=== PATIENT | male | born 1965 | race Caucasian/White ===

== ENCOUNTER → 2022-02-27 | Outpatient (CLI) | payer BC ==
[2022-02-27 16:54] LABS: BASOPHILS ABSOLUTE AUTO 0.05 K/mm3 (0.00-0.23); BASOPHILS PERCENT AUTO 1 % (0-2); EOSINOPHILS ABSOLUTE AUTO 0.08 K/mm3 (0.00-0.68); EOSINOPHILS PERCENT AUTO 1 % (0-6); Hematocrit 42.2 % (37.0-53.0); Hemoglobin 14.8 g/dL (13.5-17.5); IMMATURE GRAN ABSOLUTE AUTO 0.11 K/mm3 (0.00-0.10); IMMATURE GRAN PERCENT AUTO 1 % (0-1); LYMPHOCYTES ABSOLUTE AUTO 3.11 K/mm3 (0.84-5.20); LYMPHOCYTES PERCENT AUTO 35 % (21-46); MONOCYTES ABSOLUTE AUTO 0.47 K/mm3 (0.16-1.47); MONOCYTES PERCENT AUTO 5 % (4-13); Mean Corpuscular HGB 34.3 pg (26.0-34.0); Mean Corpuscular HGB Conc 35.1 g/dL (31.5-36.5); Mean Corpuscular Volume 98 fL (80-100); Mean Platelet Volume 10.4 fL (9.1-12.4); NEUTROPHILS ABSOLUTE AUTO 5.15 K/mm3 (1.96-9.15); NEUTROPHILS PERCENT AUTO 57 % (41-73); Platelet Count 174 K/mm3 (150-400); RDW Coefficient Variation 14.1 % (11.7-14.2); RDW Standard Deviation 50.5 fL (35.1-46.3); Red Blood Cell Count 4.31 M/mm3 (4.30-5.90); White Blood Cell Count 8.97 K/mm3 (4.00-11.30)
[2022-02-27 17:11] LABS: Albumin, Blood 3.1 g/dL (3.4-5.0); Albumin/Globulin Ratio 0.7 (0.8-1.8); Bilirubin, Total 1.3 mg/dL (0.1-1.0); Bun/Creatinine Ratio 9.2 (12.0-20.0); Calcium, Blood 8.6 mg/dL (8.5-10.1); Creatinine, Blood 1.2 mg/dL (0.60-1.20); Globulin, Blood 4.6 g/dL (2.2-4.0); Potassium, Blood 4.4 mmol/L (3.5-5.5); Total Protein, Blood 7.7 g/dL (6.4-8.2); Uric Acid, Blood 7.7 mg/dL (3.5-7.2)
== END | disposition home or self-care (01) ==
LOC: LAB SHORT 15:40
PROVIDERS: Nurse Practitioner Family
DX: M25.50 Pain in unspecified joint (principal); M25.562 Pain in left knee
CPT/HCPCS: 80053; 84550; 85025

== ENCOUNTER 2022-04-13 11:17 | Emergency (ER) | payer BC ==
[~2022-04-13] VITALS: Ht 177.8 cm; Wt 97.5 kg
[2022-04-13] MEDS ORDERED: XARELTO20 M1 PO (11:57)
[2022-04-13] MEDS ORDERED: MYCO250 (11:58)
[2022-04-13] MEDS ORDERED: TACR1 PO (11:59)
[2022-04-13 12:15] LABS: BASOPHILS PERCENT AUTO 1 % (0-2); EOSINOPHILS ABSOLUTE AUTO 0.12 K/mm3 (0.00-0.68); EOSINOPHILS PERCENT AUTO 1 % (0-6); Hemoglobin 13.3 g/dL (13.5-17.5); IMMATURE GRAN ABSOLUTE AUTO 0.19 K/mm3 (0.00-0.10); IMMATURE GRAN PERCENT AUTO 2 % (0-1); LYMPHOCYTES ABSOLUTE AUTO 2.87 K/mm3 (0.84-5.20); LYMPHOCYTES PERCENT AUTO 28 % (21-46); MONOCYTES ABSOLUTE AUTO 0.94 K/mm3 (0.16-1.47); MONOCYTES PERCENT AUTO 9 % (4-13); Mean Corpuscular HGB 35.8 pg (26.0-34.0); Mean Corpuscular Volume 102 fL (80-100); Mean Platelet Volume 9.8 fL (9.1-12.4); NEUTROPHILS ABSOLUTE AUTO 6.03 K/mm3 (1.96-9.15); NEUTROPHILS PERCENT AUTO 59 % (41-73); Platelet Count 227 K/mm3 (150-400); RDW Coefficient Variation 13.2 % (11.7-14.2); RDW Standard Deviation 49.5 fL (35.1-46.3); Red Blood Cell Count 3.71 M/mm3 (4.30-5.90); White Blood Cell Count 10.25 K/mm3 (4.00-11.30)
[2022-04-13 12:40] LABS: Magnesium, Blood 1.2 mg/dL (1.6-2.4)
[2022-04-13 12:41] LABS: Albumin, Blood 2.7 g/dL (3.4-5.0); Albumin/Globulin Ratio 0.7 (0.8-1.8); Bilirubin, Direct 0.4 mg/dL (0.0-0.3); Bilirubin, Indirect 1.5 mg/dL (0.1-0.7); Bilirubin, Total 1.9 mg/dL (0.1-1.0); Bun/Creatinine Ratio 8.4 (12.0-20.0); Creatinine, Blood 1.19 mg/dL (0.60-1.20); Phosphorus, Blood 2.6 mg/dL (2.5-4.9); Potassium, Blood 3.7 mmol/L (3.5-5.5); Total Protein, Blood 6.7 g/dL (6.4-8.2)
[2022-04-13 12:59] LABS: Calcium, Blood 8.8 mg/dL (8.5-10.1)
[2022-04-13 13:05] LABS: International Normalized Ratio 1.45; Prothrombin Time Results 14.9 Sec (9.7-11.5)
[2022-04-13] MEDS ORDERED: PRED20 PO (17:23)
== END 2022-04-13 18:00 | disposition home or self-care (01) ==
LOC: ER 11:17
PROVIDERS: Physician Assistant
DX: M10.9 Gout, unspecified (principal); Z79.899 Other long term (current) drug therapy
CPT/HCPCS: 36415; 80053; 82248; 83605; 83735; 84100; 85025; 85610; 85730; 93005; 93010; 93971; J3475; J7030; J7120; J7512

== ENCOUNTER → 2022-06-28 | Outpatient (CLI) | payer BC ==
[~2022-06-28] MED LIST: MYCO250; PRED20 PO; TACR1 PO; XARELTO20 M1 PO
[2022-06-28 11:09] LABS: BODY FLUID RBC 0.323 M/mm3 (0-0)
[2022-06-28 11:11] LABS: RBC Count, Synovial Fluid 323000 /mm3 (0-0); WBC Count, Synovial Fluid 1023 /mm3 (0-180)
[2022-06-28 12:05] LABS: Body Fluid Crystals NEG (NEGATIVE)
[2022-06-28 13:00] LABS: Lymphs, Synovial Fluid 51 % (0-15); Monocytes/Macrophages, Synovia 48 % (0-65); Neutrophils, Synovial Fluid 2 % (0-24)
[2022-06-28 13:01] LABS: Appearance, Synovial Fluid Bloody (Clear); Color, Synovial Fluid Red (None-P Yel)
== END | disposition home or self-care (01) ==
LOC: LAB SHORT 09:30
PROVIDERS: Orthopaedic Surgery
DX: M25.562 Pain in left knee (principal)
CPT/HCPCS: 87070; 87075; 87205; 89051; 89060

== ENCOUNTER 2022-08-12 12:32 | Inpatient (IN) | payer BC ==
[~2022-08-12] VITALS: Ht 177.8 cm; Wt 106.5 kg
[~2022-08-12 12:32] MED LIST changes: -MYCO250; +MYCO250 PO
[2022-08-12 13:20] LABS: BASOPHILS ABSOLUTE AUTO 0.04 K/mm3 (0.00-0.23); BASOPHILS PERCENT AUTO 1 % (0-2); EOSINOPHILS ABSOLUTE AUTO 0.05 K/mm3 (0.00-0.68); EOSINOPHILS PERCENT AUTO 1 % (0-6); Hemoglobin 13.1 g/dL (13.5-17.5); IMMATURE GRAN ABSOLUTE AUTO 0.12 K/mm3 (0.00-0.10); IMMATURE GRAN PERCENT AUTO 2 % (0-1); LYMPHOCYTES ABSOLUTE AUTO 2.15 K/mm3 (0.84-5.20); LYMPHOCYTES PERCENT AUTO 27 % (21-46); MONOCYTES ABSOLUTE AUTO 0.69 K/mm3 (0.16-1.47); MONOCYTES PERCENT AUTO 9 % (4-13); Mean Corpuscular HGB Conc 35.4 g/dL (31.5-36.5); Mean Corpuscular Volume 99 fL (80-100); Mean Platelet Volume 10.5 fL (9.1-12.4); NEUTROPHILS ABSOLUTE AUTO 4.85 K/mm3 (1.96-9.15); NEUTROPHILS PERCENT AUTO 62 % (41-73); NRBC ABSOLUTE 0.02 K/mm3 (0.00-0.02); NRBC Auto 0.3 /100 WBC (0.0-0.2); Platelet Count 197 K/mm3 (150-400); RDW Coefficient Variation 13.9 % (11.7-14.2); RDW Standard Deviation 50.4 fL (35.1-46.3); Red Blood Cell Count 3.74 M/mm3 (4.30-5.90)
[2022-08-12 13:47] LABS: Alanine Aminotransfer (ALT/SGP 38 U/L (12-78); Albumin, Blood 2.6 g/dL (3.4-5.0); Albumin/Globulin Ratio 0.7 (0.8-1.8); Alk Phos 267 U/L (50-136); Anion Gap 12 mmol/L (6-16); Aspartate Aminotrans (AST/SGOT 94 U/L (12-37); Bilirubin, Total 2.9 mg/dL (0.1-1.0); Blood Urea Nitrogen 30 mg/dL (8-24); CO2, Blood 31 mmol/L (21-32); Calcium, Blood 9.1 mg/dL (8.5-10.1); Chloride, Blood 76 mmol/L (98-108); Creatinine, Blood 2.51 mg/dL (0.60-1.20); Globulin, Blood 3.9 g/dL (2.2-4.0); Glomerular Filtration Rate 29 (60-); Glucose, Blood 136 mg/dL (70-99); Potassium, Blood 2.8 mmol/L (3.5-5.5); Sodium, Blood 119 mmol/L (136-145); Total Protein, Blood 6.5 g/dL (6.4-8.2)
[2022-08-12 17:46] LABS: International Normalized Ratio 1.23; Prothrombin Time Results 12.7 Sec (9.7-11.5)
[2022-08-12 18:25] LABS: Source, Urine Clean Catch
[2022-08-12 18:41] LABS: Blood, Urine 1+ (Neg); Color, Urine Amber (P-Yellow); Glucose Qualitative, Urine Neg (Neg); Ketones, Urine Neg (Neg); Leukocyte Esterase, Urine 1+ (Neg); Nitrite, Urine Pos (Neg); Protein, Urine 2+ (Neg); Urobilinogen, Urine 3+ (Normal)
[2022-08-12 18:45] LABS: Appearance, Urine Hazy (Clear); Bilirubin, Urine 2+ (Neg)
[2022-08-12 18:52] LABS: Amorphous Light (0-Heavy); Bacteria Many /hpf; Mucus Light (0-Heavy); Red Blood Cells, Urine 0-2 /hpf (0-2); Squamous Epithelial Cells Mod /hpf (Few); Transitional Epithelial Cells Rare /hpf (0-Rare)
[2022-08-12] MEDS ORDERED: MYCO250 PO (19:39)
[2022-08-12] MEDS ORDERED: ALLEGRA ALLERG180 MG PO (19:42)
--- NOTE | 2022-08-12 20:00 | NUR ---
ADMISSION PATIENT ARRIVES TO PCU 2 FROM ER. PATIENT ABLE TO STAND, PIVOT AND MOVE SELF TO PCU BED. WITH PATIENT AT BEDSIDE. PATIENT ALERT AND ORIENTED, ANSWERING QUESTIONS APPROPRIATELY. ALL VITALS STABLE, TELE IN PLACE. MEDICATIONS RECONCILED WITH PATIENT AND PATIENT'S . PATIENT REQUESTING MELATONIN, CALL PLACED TO HOSPITALIST, SEE UPDATED ORDERS. DINNER TRAY BROUGHT TO PATIENT, TOLERATING PO. PATIENT ORIENTED TO ROOM AND CALL LIGHT SYSTEM. BED IN LOW POSITION, CALL LIGHT IN REACH.
[2022-08-13 04:03] LABS: Hematocrit 28.4 % (37.0-53.0); Hemoglobin 10.1 g/dL (13.5-17.5); Mean Corpuscular HGB 35.6 pg (26.0-34.0); Mean Corpuscular HGB Conc 35.6 g/dL (31.5-36.5); Mean Corpuscular Volume 100 fL (80-100); Mean Platelet Volume 10.8 fL (9.1-12.4); Platelet Count 108 K/mm3 (150-400); RDW Coefficient Variation 13.8 % (11.7-14.2); RDW Standard Deviation 50.4 fL (35.1-46.3); Red Blood Cell Count 2.84 M/mm3 (4.30-5.90); White Blood Cell Count 3.39 K/mm3 (4.00-11.30)
[2022-08-13 04:42] LABS: Albumin/Globulin Ratio 0.7 (0.8-1.8); Bilirubin, Total 1.8 mg/dL (0.1-1.0); Bun/Creatinine Ratio 13.3 (12.0-20.0); Calcium, Blood 8.4 mg/dL (8.5-10.1); Creatinine, Blood 2.26 mg/dL (0.60-1.20); Globulin, Blood 2.7 g/dL (2.2-4.0); Magnesium, Blood 2.6 mg/dL (1.6-2.4); Potassium, Blood 3.1 mmol/L (3.5-5.5); Total Protein, Blood 4.7 g/dL (6.4-8.2)
--- NOTE | 2022-08-13 06:08 | NUR ---
SHIFT SUMMARY PATIENT ALERT AND ORIENTED, ABLE TO MAKE NEEDS KNOWN TO STAFF. VSS. TOLERATING PO FLUIDS/FOOD. PATIENT IS A STANDBY ASSIST TO THE BEDSIDE COMMODE, BM OVERNIGHT, MINIMAL DARK URINE OUTPUT. FLUIDS INFUSING PER EMAR. NO CHANGES SINCE ADMISSION, WILL REPORT TO DAY SHIFT RN.
[2022-08-13 12:22] LABS: Albumin, Blood 2.2 g/dL (3.4-5.0); Anion Gap 8 mmol/L (6-16); Blood Urea Nitrogen 30 mg/dL (8-24); Bun/Creatinine Ratio 14.8 (12.0-20.0); CO2, Blood 30 mmol/L (21-32); Calcium, Blood 8.2 mg/dL (8.5-10.1); Chloride, Blood 87 mmol/L (98-108); Creatinine, Blood 2.03 mg/dL (0.60-1.20); Glomerular Filtration Rate 38 (60-); Glucose, Blood 106 mg/dL (70-99); Phosphorus, Blood 1.1 mg/dL (2.5-4.9); Potassium, Blood 3.4 mmol/L (3.5-5.5); Sodium, Blood 125 mmol/L (136-145)
--- NOTE | 2022-08-13 14:35 | NUR ---
PT BLEEDING OUT OF PENIS AFTER URINATION. PHYSICIAN NOTIFIED AND NO NEW ORDERS AT THIS TIME.
--- NOTE | 2022-08-13 17:25 | NUR ---
SHIFT SUMMARY PT A/O X4; PLEASANT AND COOPERATIVE WITH CARE. PT HAD TWO EPISODES OF DIARRHEA THIS SHIFT AND STOOL SAMPLE WAS COLLECTED. PT IS ALSO EXPERIENCING BLEEDING WITH URINATION, PROVIDER IS AWARE. HE REPORTS SOME PERIODIC DIZZINESS WHEN GETTING UP BUT NO NAUSEA/VOMITTING. VSS. AT THE BEDSIDE.
[2022-08-13 20:20] LABS: Adenovirus F 40/41 Not Detected (NOT DETECT); Astrovirus Not Detected (NOT DETECT); Campylobacter Sp Not Detected (NOT DETECT); Cryptosporidium Not Detected (NOT DETECT); Cyclospora Cayetanensis Not Detected (NOT DETECT); E. Coli O157 Not Detected (NOT DETECT); Entamoeba Histolytica Not Detected (NOT DETECT); Enteroaggregative E. coli-EAEC Not Detected (NOT DETECT); Enteropathogenic E. coli-EPEC Not Detected (NOT DETECT); Enterotoxigenic E. coli-ETEC Not Detected (NOT DETECT); Giardia Lamblia Not Detected (NOT DETECT); Norovirus GI/GII Detected (NOT DETECT); Plesiomonas Shigelloides Not Detected (NOT DETECT); Rotavirus A Not Detected (NOT DETECT); Salmonella Sp Not Detected (NOT DETECT); Sapovirus Not Detected (NOT DETECT); Shiga Toxin-prod E. coli-STEC Not Detected (NOT DETECT); Shigella/Enteroin E. coli-EIEC Not Detected (NOT DETECT); Vibrio Cholerae Not Detected (NOT DETECT); Vibrio Sp Not Detected (NOT DETECT); Yersinia Enterocolitica Not Detected (NOT DETECT)
[2022-08-14 04:16] LABS: Hematocrit 27.7 % (37.0-53.0); Hemoglobin 9.6 g/dL (13.5-17.5); Mean Corpuscular HGB Conc 34.7 g/dL (31.5-36.5); Mean Corpuscular Volume 101 fL (80-100); Mean Platelet Volume 10.9 fL (9.1-12.4); Platelet Count 121 K/mm3 (150-400); RDW Standard Deviation 51.9 fL (35.1-46.3); Red Blood Cell Count 2.74 M/mm3 (4.30-5.90); White Blood Cell Count 3.34 K/mm3 (4.00-11.30)
[2022-08-14 04:40] LABS: Magnesium, Blood 2.2 mg/dL (1.6-2.4)
--- NOTE | 2022-08-14 05:55 | NUR ---
SHIFT SUMMARY PATIENT ALERT AND ORIENTED, ABLE TO MAKE NEEDS KNOWN TO STAFF. VSS, REMAINS ON RA WITH O2 SAT >95%. USING URINAL INDEPDENDENTLY WITH ADEQUATE URINE OUTPUT. NO SIGNS OF BLEEDING. PATIENT MOVES SELF IN BED INDEPDENDENTLY. NO SIGNIFICANT CHANGES DURING THE NIGHT, WILL REPORT TO DAY SHIFT RN.
[2022-08-14 06:41] LABS: Albumin, Blood 1.9 g/dL (3.4-5.0); Anion Gap 7 mmol/L (6-16); Blood Urea Nitrogen 29 mg/dL (8-24); Bun/Creatinine Ratio 17.3 (12.0-20.0); CO2, Blood 29 mmol/L (21-32); Calcium, Blood 7.8 mg/dL (8.5-10.1); Chloride, Blood 93 mmol/L (98-108); Creatinine, Blood 1.68 mg/dL (0.60-1.20); Glomerular Filtration Rate 47 (60-); Glucose, Blood 89 mg/dL (70-99); Phosphorus, Blood 2.3 mg/dL (2.5-4.9); Potassium, Blood 3.9 mmol/L (3.5-5.5); Sodium, Blood 129 mmol/L (136-145)
--- NOTE | 2022-08-14 07:23 | NUR ---
ASSUMED CARE: PT SITTING UP IN CHAIR AT THIS TIME. NSR IN 60S ON TELE. HOUSE KEEPING AT BEDSIDE DOING CLEAN UP. NO FURTHER NEEDS OR CONCERNS AT THIS TIME.
--- NOTE | 2022-08-14 09:30 | NUR ---
DR RAYMUNDO CAME TO SEE PT AND IS AWARE THAT PT HAD PROLONGED QT ON TELE. TO REVIEW BEFORE DETERMINING STATUS CHANGE
--- NOTE | 2022-08-14 17:43 | NUR ---
SHIFT SUMMARY: PT HAD A COUPLE OF BOUTS OF DIARRHEA THIS SHIFT. CONTINUING TO REHYDRATE AND STABILIZE ELECTROLYTES PRIOR TO DISCHARGING. IVF NS RUNNING AT 60/HR PER ORDERS T/O SHIFT. SPOUSE AT BEDSIDE T/O SHIFT. NO ACUTE NEEDS OR CONCERNS AT THIS TIME.
[2022-08-15 04:54] LABS: Albumin, Blood 1.9 g/dL (3.4-5.0); Anion Gap 6 mmol/L (6-16); Blood Urea Nitrogen 21 mg/dL (8-24); Bun/Creatinine Ratio 15.1 (12.0-20.0); CO2, Blood 29 mmol/L (21-32); Calcium, Blood 7.5 mg/dL (8.5-10.1); Chloride, Blood 95 mmol/L (98-108); Creatinine, Blood 1.39 mg/dL (0.60-1.20); Glomerular Filtration Rate 60 (60-); Glucose, Blood 89 mg/dL (70-99); Potassium, Blood 3.6 mmol/L (3.5-5.5); Sodium, Blood 130 mmol/L (136-145)
--- NOTE | 2022-08-15 05:04 | NUR ---
SHIFT SUMMARY ASSUMED CARE OF PT AT 1900. PT IS A/OX4. HEART SOUNDS REGULAR. LUNG SOUNDS CLEAR. ABD DISTENED BUT PT STATES NORMAL. PT HAD NO BM THIS SHIFT. USED URINAL T/O THE NIGHT. NO COMPLAINTS.
--- NOTE | 2022-08-15 17:18 | NUR ---
SHIFT SUMMARY- PT TRANSFERED FROM PCU. HIS IS A/O, PLESANT AND COOPERATIVE. ORIENTED TO THE ROOM 2 RN SKIN ASSESSMENT PREFORMED. ISOLATION MAINTAINED DURING THIS SHIFT. AT BEDSIDE. HIS BED IS IN THE LOW POSITON AND CALL LIGHT IS WITHIN REACH.
--- NOTE | 2022-08-16 05:36 | NUR ---
SHIFT SUMMARY 57 YR M TRANSFERED FROM PCU AFTER BEING ADMITTED FOR NOROVIRUS. FULL CODE. NO ACUTE CHANGES THIS SHIFT. PT HAD ONE EPISODE OF EMESIS AND STATED THAT IT HAPPENED FROM COUGHING AND NOT BECAUSE HE WAS NAUSEAOUS OR HAD AN UPSET STOMSCH. HE AT A JELLO AFTERWARD. HE TOOK HIS EVENING MEDS WELL AND WENT TO BED AFTER THAT. HE SLEPT FOR MOST OF THE REST OF THE SHIFT. NO C/O PAIN OR DISCOMFORT THIS SHIFT.
[2022-08-16 05:38] LABS: Hematocrit 27.9 % (37.0-53.0); Hemoglobin 9.4 g/dL (13.5-17.5); Mean Corpuscular HGB 35.6 pg (26.0-34.0); Mean Corpuscular HGB Conc 33.7 g/dL (31.5-36.5); Mean Platelet Volume 10.4 fL (9.1-12.4); Platelet Count 169 K/mm3 (150-400); RDW Coefficient Variation 14.6 % (11.7-14.2); RDW Standard Deviation 56.3 fL (35.1-46.3); Red Blood Cell Count 2.64 M/mm3 (4.30-5.90); White Blood Cell Count 3.57 K/mm3 (4.00-11.30)
[2022-08-16 05:58] LABS: Mean Corpuscular Volume 106 fL (80-100)
[2022-08-16 15:34] LABS: Magnesium, Blood 1.5 mg/dL (1.6-2.4); Phosphorus, Blood 2.7 mg/dL (2.5-4.9)
[2022-08-16 16:51] LABS: Albumin, Blood 1.8 g/dL (3.4-5.0); Albumin/Globulin Ratio 0.6 (0.8-1.8); Bun/Creatinine Ratio 12.5 (12.0-20.0); Calcium, Blood 7.8 mg/dL (8.5-10.1); Creatinine, Blood 1.2 mg/dL (0.60-1.20); Potassium, Blood 3.5 mmol/L (3.5-5.5); Total Protein, Blood 4.8 g/dL (6.4-8.2)
--- NOTE | 2022-08-16 18:19 | NUR ---
ASSUMED CARE OF Pt AT 0645 WITH PRECEPTOR PHILLIP PEREIRA. Pt WAS RESTING IN BED. SHIFT ASSESSMENT WAS DONE BY THIS DOCUMENT IMAGING SPECIALIST. D/C IV FLUIDS FOR PT. PT WAS ENCOURAGED TO DRINK FLUIDS THROUGH OUT THE SHIFT. Pt WAS EVALUATED BY PT TODAY. Pt HAD NO EPISODES OF EMISIS TODAY. WILL CONTINUE WITH PLAN OF CARE FOR Pt. CALL LIGHT IS WITHIN REACH OF Pt.
--- NOTE | 2022-08-16 18:23 | NUR ---
SHIFT SUMMARY- PT IS A/O, PLESANT AND COOPERATIVE. HE IS EATING AND DRINKING WELL. HIS WAS AT BEDSIDE THIS SHIFT. FLUIDS WERE HELD UNIT LAB RESULTS PER . HE IS AMBULATING IN THE ROOM. HIS BED IS IN THE LOW POSITION AND CALL LIGHT IS WITIN REACH.
--- NOTE | 2022-08-17 04:44 | NUR ---
SHIFT SUMMARY 57 YR M ADMITTED ON 08/12/22 FOR NOROVIRUS. FULL CODE. NO ACUTE CHANGES THIS SHIFT. PT STATED THAT HIS TELE MONITOR CAME OFF WHEN HE WENT TO THE BATHROOM AND HE REFUSED TO HAVE IT PUT BACK ON STATING THAT HE WOULD BE GOING HOME TODAY ANYWAY. QUALITY ASSURANCE CLERK NOTIFIED AND ORDER COMPLETED. HE HAS HAD NO C/O PAIN OR DISCOMFORT THIS SHIFT AND HAS SLEPT FOR MOST OF THE SHIFT.
[2022-08-17 06:01] LABS: Albumin, Blood 2.1 g/dL (3.4-5.0); Anion Gap 5 mmol/L (6-16); Blood Urea Nitrogen 11 mg/dL (8-24); Bun/Creatinine Ratio 9.9 (12.0-20.0); CO2, Blood 27 mmol/L (21-32); Calcium, Blood 8.5 mg/dL (8.5-10.1); Chloride, Blood 101 mmol/L (98-108); Creatinine, Blood 1.11 mg/dL (0.60-1.20); Glomerular Filtration Rate 78 (60-); Glucose, Blood 78 mg/dL (70-99); Magnesium, Blood 2.1 mg/dL (1.6-2.4); Phosphorus, Blood 2.4 mg/dL (2.5-4.9); Potassium, Blood 3.5 mmol/L (3.5-5.5); Sodium, Blood 133 mmol/L (136-145)
[2022-08-17] MEDS ORDERED: ONDA4ODT MM (10:11)
--- NOTE | 2022-08-17 14:12 | NUR ---
Discharge Summary A/Ox3, pleasant/cooperative. Reviewed d/c papers with and patient. Questions answered. Copy of d/c papers given. Meds faxed to [facility]. Escorted by TIRE AND LUBE TECHNICIAN via w/c.
== END 2022-08-17 15:09 | disposition home health service (06) | DRG 683 ==
LOC: ER 12:32 → MEDS 18:07 → PCU 18:07 → MEDS 08-15 11:24
PROVIDERS: Emergency Medicine; Internal Medicine; Nurse Practitioner Acute Care; ADMIT Internal Medicine
DX: N17.9 Acute kidney failure, unspecified (principal); A08.11 Acute gastroenteropathy due to Norwalk agent; E87.1 Hypo-osmolality and hyponatremia; Z94.4 Liver transplant status; I47.20 Ventricular tachycardia, unspecified; D68.51 Activated protein C resistance; D84.9 Immunodeficiency, unspecified; E86.0 Dehydration; E87.6 Hypokalemia; E83.39 Other disorders of phosphorus metabolism; R74.01 Elevation of levels of liver transaminase levels; R94.31 Abnormal electrocardiogram [ECG] [EKG]; D69.6 Thrombocytopenia, unspecified; K70.30 Alcoholic cirrhosis of liver without ascites; M10.9 Gout, unspecified; R94.5 Abnormal results of liver function studies; E80.6 Other disorders of bilirubin metabolism; E83.42 Hypomagnesemia; E86.1 Hypovolemia; E86.9 Volume depletion, unspecified; R30.0 Dysuria; Z79.01 Long term (current) use of anticoagulants; Z92.25 Personal history of immunosuppression therapy; Z79.899 Other long term (current) drug therapy; Z79.52 Long term (current) use of systemic steroids
CPT/HCPCS: 36415; 51798; 71045; 76770; 80053; 80069; 81001; 82533; 82550; 82570; 83735; 83880; 83930; 84100; 84295; 84300; 84443; 85025; 85027; 85610; 87086; 87507; 93005; 93010; 96361; 96365; 96366; 96368; 97116; 97162; 99285-25; A9270; J3475; J3480; J7030; J7050; J7060; J7507; J7517

== ENCOUNTER 2024-05-03 14:56 | Inpatient (IN) | payer MEDICARE, BC ==
[~2024-05-03] VITALS: Ht 177.8 cm; Wt 100.5 kg
[~2024-05-03 14:56] MED LIST changes: +ALLEGRA ALLERG180 MG PO; +ONDA4ODT MM
[2024-05-03 15:30] LABS: BASOPHILS ABSOLUTE AUTO 0.04 K/mm3 (0.00-0.23); BASOPHILS PERCENT AUTO 1 % (0-2); EOSINOPHILS ABSOLUTE AUTO 0.07 K/mm3 (0.00-0.68); EOSINOPHILS PERCENT AUTO 1 % (0-6); Hematocrit 36.8 % (37.0-53.0); Hemoglobin 12.8 g/dL (13.5-17.5); IMMATURE GRAN ABSOLUTE AUTO 0.12 K/mm3 (0.00-0.10); IMMATURE GRAN PERCENT AUTO 2 % (0-1); LYMPHOCYTES ABSOLUTE AUTO 1.29 K/mm3 (0.84-5.20); LYMPHOCYTES PERCENT AUTO 17 % (21-46); MONOCYTES PERCENT AUTO 8 % (4-13); Mean Corpuscular HGB 34.3 pg (26.0-34.0); Mean Corpuscular HGB Conc 34.8 g/dL (31.5-36.5); Mean Corpuscular Volume 99 fL (80-100); Mean Platelet Volume 9.2 fL (9.1-12.4); NEUTROPHILS ABSOLUTE AUTO 5.41 K/mm3 (1.96-9.15); NEUTROPHILS PERCENT AUTO 72 % (41-73); Platelet Count 174 K/mm3 (150-400); RDW Coefficient Variation 12.7 % (11.7-14.2); RDW Standard Deviation 46.5 fL (35.1-46.3); Red Blood Cell Count 3.73 M/mm3 (4.30-5.90); White Blood Cell Count 7.53 K/mm3 (4.00-11.30)
[2024-05-03 15:50] LABS: Albumin, Blood 2.5 g/dL (3.4-5.0); Albumin/Globulin Ratio 0.6 (0.8-1.8); Bilirubin, Total 0.9 mg/dL (0.1-1.0); Bun/Creatinine Ratio 19.1 (12.0-20.0); Calcium, Blood 8.8 mg/dL (8.5-10.1); Creatinine, Blood 2.41 mg/dL (0.60-1.20); Globulin, Blood 4.1 g/dL (2.2-4.0); Potassium, Blood 4.2 mmol/L (3.5-5.5); Total Protein, Blood 6.6 g/dL (6.4-8.2)
[2024-05-03] MEDS ORDERED: NS 1,000 ML IV SCH (16:40)
[2024-05-03] MEDS ORDERED: CefTRIAXone Sodium 1,000 MG in NS 50 ML IV ONE (16:40)
[2024-05-03 18:46] LABS: Source, Urine Clean Catch
[2024-05-03] MEDS ORDERED: Ondansetron HCl 2 MG / ML 2ML Vial IV PRN (18:50)
[2024-05-03] MEDS ORDERED: FLU VACC TS2024-25(6MOS UP)/PF 45 MCG/0.5 ML SYRINGE IM SCH (18:50)
[2024-05-03 18:59] LABS: Blood, Urine 1+ (Neg); Glucose Qualitative, Urine Neg (Neg); Ketones, Urine Neg (Neg); Leukocyte Esterase, Urine 1+ (Neg); Nitrite, Urine Neg (Neg); Protein, Urine 1+ (Neg); Specific Gravity, Urine 1.025 (1.003-1.022); Urobilinogen, Urine 1+ (Normal)
[2024-05-03 19:00] LABS: Bilirubin, Urine 1+ (Neg)
[2024-05-03] MEDS ORDERED: Azithromycin 500 MG in NS 250 ML IV SCH (19:00)
[2024-05-03 19:01] LABS: Appearance, Urine Hazy (Clear); Color, Urine Amber (P-Yellow)
[2024-05-03 19:02] LABS: Bacteria Mod /hpf; Red Blood Cells, Urine 0-2 /hpf (0-2); Squamous Epithelial Cells Few /hpf (Few)
[2024-05-03 19:11] LABS: Bicarbonate Venous 19.9 mmol/L (24.0-30.0); PCO2 Venous 36.3 mmHg (38-42); pH Blood Venous 7.34 (7.34-7.37)
[2024-05-03 20:28] VITALS: BP 124/81
--- NOTE | 2024-05-03 20:52 | NUR ---
ARRIVAL TO SURGICAL UNIT ROOM 209. PT ARRIVED VIA HOSPITAL BED, TRANSFERED VIA SLIDER SHEET. PT DENIES PAIN BUT REPORTS NAUSEA. VSS. REQUESTED TELEMETRY BOX. ORIENTED TO ROOM AND CALL LIGHT. AT BEDSIDE. BED IN LOWEST POSITION.
[2024-05-03] MEDS ORDERED: Mycophenolate Mofetil 250 MG Cap PO SCH ×2 (21:00)
[2024-05-03] MEDS ORDERED: Tacrolimus 1 MG Cap PO SCH (21:00)
[2024-05-03 21:03] LABS: Adenovirus Not Detected (NOT DETECT); Bordetella pertussis Not Detected (NOT DETECT); Chlamydophila pneumoniae Not Detected (NOT DETECT); Coronavirus 229E Not Detected (NOT DETECT); Coronavirus HKU1 Not Detected (NOT DETECT); Coronavirus NL63 Not Detected (NOT DETECT); Coronavirus OC43 Not Detected (NOT DETECT); Human Metapneumovirus Not Detected (NOT DETECT); Human Rhinovirus/Enterovirus Not Detected (NOT DETECT); Influenza A/2009-H1 Not Detected (NOT DETECT); Influenza A/H1 Not Detected (NOT DETECT); Influenza A/H3 Not Detected (NOT DETECT); Influenza B Not Detected (NOT DETECT); Mycoplasma pneumoniae Not Detected (NOT DETECT); Parainfluenza Virus 1 Not Detected (NOT DETECT); Parainfluenza Virus 2 Not Detected (NOT DETECT); Parainfluenza Virus 3 Not Detected (NOT DETECT); Parainfluenza Virus 4 Not Detected (NOT DETECT); Respiratory Syncytial Virus Not Detected (NOT DETECT); SARS-Cov-2 (COVID-19), BioFire Not Detected (NOT DETECT)
[2024-05-03] MEDS ORDERED: Rivaroxaban 10 MG Tab PO SCH (21:30)
[2024-05-03] MEDS ORDERED: Sodium Bicarb 8.4% Inj 150 MEQ in Dextrose 5% 1,000 ML IV SCH (21:35)
[2024-05-04 04:07] VITALS: BP 120/70
[2024-05-04 04:31] LABS: BASOPHILS ABSOLUTE AUTO 0.03 K/mm3 (0.00-0.23); BASOPHILS PERCENT AUTO 1 % (0-2); EOSINOPHILS ABSOLUTE AUTO 0.08 K/mm3 (0.00-0.68); EOSINOPHILS PERCENT AUTO 2 % (0-6); Hematocrit 28.5 % (37.0-53.0); Hemoglobin 9.9 g/dL (13.5-17.5); IMMATURE GRAN ABSOLUTE AUTO 0.04 K/mm3 (0.00-0.10); IMMATURE GRAN PERCENT AUTO 1 % (0-1); LYMPHOCYTES ABSOLUTE AUTO 1.43 K/mm3 (0.84-5.20); LYMPHOCYTES PERCENT AUTO 31 % (21-46); MONOCYTES ABSOLUTE AUTO 0.48 K/mm3 (0.16-1.47); MONOCYTES PERCENT AUTO 10 % (4-13); Mean Corpuscular HGB 34.5 pg (26.0-34.0); Mean Corpuscular HGB Conc 34.7 g/dL (31.5-36.5); Mean Corpuscular Volume 99 fL (80-100); Mean Platelet Volume 9.8 fL (9.1-12.4); NEUTROPHILS ABSOLUTE AUTO 2.61 K/mm3 (1.96-9.15); NEUTROPHILS PERCENT AUTO 56 % (41-73); Platelet Count 124 K/mm3 (150-400); RDW Coefficient Variation 12.6 % (11.7-14.2); RDW Standard Deviation 46.5 fL (35.1-46.3); Red Blood Cell Count 2.87 M/mm3 (4.30-5.90); White Blood Cell Count 4.67 K/mm3 (4.00-11.30)
[2024-05-04 04:44] LABS: International Normalized Ratio 1.59; Prothrombin Time Results 16.4 Sec (9.7-11.5)
[2024-05-04 05:05] LABS: Albumin/Globulin Ratio 0.6 (0.8-1.8); Bilirubin, Direct 0.4 mg/dL (0.0-0.3); Bilirubin, Indirect 0.3 mg/dL (0.1-0.7); Bilirubin, Total 0.7 mg/dL (0.1-1.0); Bun/Creatinine Ratio 21.1 (12.0-20.0); Calcium, Blood 7.7 mg/dL (8.5-10.1); Creatinine, Blood 2.32 mg/dL (0.60-1.20); Globulin, Blood 3.1 g/dL (2.2-4.0); Magnesium, Blood 1.9 mg/dL (1.6-2.4); Phosphorus, Blood 3.9 mg/dL (2.5-4.9); Potassium, Blood 4.6 mmol/L (3.5-5.5); Total Protein, Blood 5.1 g/dL (6.4-8.2); Uric Acid, Blood 10.9 mg/dL (3.5-7.2)
--- NOTE | 2024-05-04 05:32 | NUR ---
CALL TO HOSPITALIST. CALL PLACED TO DR. BOWMAN REGARDING LOW URINE OUTPUT AT 0534. PT HAS HAD 140 ML URINE OUT THIS SHIFT, BLADDER SCAN SHOWED [address] JETER FOLLOWING PT CASE AND NEW ORDERS RECEIVED EARLIER IN SHIFT. NO NEW ORDERS RECEIVED FROM HOSPITALIST AT THIS TIME.
--- NOTE | 2024-05-04 06:21 | NUR ---
NEW ORDERS FROM DR. JETER. DR. JETER ROUNDED ON PT. NEW ORDERS RECEIVED TO DECREASE SODIUM BICARB TAB FROM TID TO QD, TO D/C BICARB DRIP BY 1200, ORDER STAT SODIUM FOR 11AM AND CALL DR. JETER BY 1200 WITH RESULTS.
--- NOTE | 2024-05-04 06:37 | NUR ---
SHIFT SUMMARY NOC. PT A/O X4, PT ADMIT FOR SID. PT VOIDING SMALL AMOUNTS OF URINE, HOSPITALIST AWARE AND DR. JETER CONSULT. 24 HOUR URINE TEST IN PROCESS. PT ON TELEMETRY WITH NO EVENTS. PT ON 1000 ML FLUID RESTRICTIONS. PT DENIES DYSURIA OR PAIN. BED IN LOWEST POSITION, CALL LIGHT IN REACH.
[2024-05-04] MEDS ORDERED: Sodium Bicarb 8.4% Inj 150 MEQ in Dextrose 5% 1,000 ML IV SCH (06:55)
[2024-05-04 07:22] VITALS: BP 128/74
[2024-05-04] MEDS ORDERED: Bumetanide 0.25 MG/ML 10ML Vial IV SCH (09:00)
[2024-05-04] MEDS ORDERED: Sodium Bicarbonate 650 MG Tab PO SCH ×2 (09:00)
[2024-05-04] MEDS ORDERED: Bumetanide 0.25 MG/ML 4ML ViaL IV SCH (09:00)
[2024-05-04] MEDS ORDERED: Mycophenolate Mofetil 250 MG Cap PO SCH (09:00)
[2024-05-04] MEDS ORDERED: Albumin Human 50 ML IV SCH (09:00)
[2024-05-04] MEDS ORDERED: Loratadine 10 MG Tab PO SCH (09:00)
[2024-05-04] MEDS ORDERED: Acetaminophen 325 MG TABLET PO PRN (09:10)
--- NOTE | 2024-05-04 11:26 | NUR ---
TRANSFER TO MEDICAL FLOOR PT TAKEN TO MEDICAL FLOOR AT APPROXIMATELY 1045. PREPORT GIVEN TO VINOD PEREIRA PRIOR TO TRANFER. [facility] NOTIFIED OF TRANSFER TO MEDICAL FLOOR. PT NOTIFIED HIS AF TRANSFER TO MEDICAL UNIT. 24 HOUR URINE RETARTED AT 1000 AFTER PT ACCIDENTALLY SPILLED HIS URINE IN BED. PT EDUCATED TO CALL STAFF FOR ASSISTANCE TO USE THE URINAL.
--- NOTE | 2024-05-04 12:06 | NUR ---
SODIUM BARCAB STOPPED PER DR JETER AND UPDATED WITH SODIUM LEVEL OF 128.
[2024-05-04 15:38] VITALS: BP 142/76
[2024-05-04] MEDS ORDERED: CefTRIAXone Sodium 1,000 MG in NS 100 ML IV SCH (18:00)
--- NOTE | 2024-05-04 18:34 | NUR ---
SHIFT SUMMARY PT TRANSFERED FROM ROOM 209 TO 309 PT IS A&O X4 AND ASSIST X1. PT CONT TO REMAIN IN CONTACT AWAITING GI PANEL RESULTS. PT STARTED A 24HR URINE AT 1000 PT NOTED TO BE INCONT OF BLADDER AROUND 1700. PT WAS BLADDER SCANNED AND NOTED 90ML IN BLADDER DR JETER WAS NOTIFED D/T THIS WAS THE 3RD TIME THE 24HR HAD TO BE STARTED. DR JETER STATED TO CONT WITH THE SAMPLE EVEN IF IT WAS A INADAQUATE AMOUNT NOTED THAT HE DIDNT FEEL LIKE IT WAS NESSARY TO CATH PT.
[2024-05-04 21:01] VITALS: BP 149/82
[2024-05-05 02:39] VITALS: BP 141/80
[2024-05-05 05:25] LABS: Hematocrit 29.7 % (37.0-53.0); Hemoglobin 10.1 g/dL (13.5-17.5)
--- NOTE | 2024-05-05 05:36 | NUR ---
MULTI OPERATION FORMING MACHINE SETTER SUMMARY 24 HR URINE IN PROGRESS. PT HAS HAD SOME INCONTINENT EPISODES ON DAY SHIFT AND ALSO MULTI OPERATION FORMING MACHINE SETTER TONIGHT. DR JETER NOTIFIED AT BEDSIDE AT 0520 BUT HE SAYS OK TO CONTINUE TO COLLECT 24 HR URINE DESPITE INCONTINENT EPISODES. PT IS COMPLIENT WITH 1L FLUID RESTRICTION. SUSPECT POSSIBLE ETOH WITHDRAWL. PT HAS MILD TREMORS, MILD CONFUSION, SWEATING, ANXIETY, RESTLESSNESS, AND INSOMNIA. HE SAYS HE DOESNT WANT TO CONSIDER TAKING MEDICINE FOR THIS UNTIL HE CAN DISCUSS WITH HIS , WHO WONT BE HERE UNTIL 8 AM AND HE DOESNT WANT TO WAKE HER UP. HIS SYMPTOMS ARE MILD AT THIS TIME AND SO WE WILL JUST CONTINUE TO MONITOR CLOSELY AT THIS TIME.
[2024-05-05 05:53] LABS: Albumin, Blood 2.2 g/dL (3.4-5.0); Anion Gap 13 mmol/L (3-11); Blood Urea Nitrogen 50 mg/dL (8-24); Bun/Creatinine Ratio 20.5 (12.0-20.0); CO2, Blood 23 mmol/L (21-32); Calcium, Blood 8.1 mg/dL (8.5-10.1); Chloride, Blood 97 mmol/L (98-108); Creatinine, Blood 2.44 mg/dL (0.60-1.20); Glomerular Filtration Rate 30 (60-); Glucose, Blood 90 mg/dL (70-99); Magnesium, Blood 1.9 mg/dL (1.6-2.4); Phosphorus, Blood 4.1 mg/dL (2.5-4.9); Potassium, Blood 4.2 mmol/L (3.5-5.5); Sodium, Blood 129 mmol/L (136-145)
[2024-05-05] MEDS ORDERED: NS 1,000 ML IV SCH ×2 (06:05→15:30)
[2024-05-05 07:45] VITALS: BP 128/77
[2024-05-05 13:33] LABS: Campylobacter Sp Not Detected (NOT DETECT); E. Coli O157 Not Detected (NOT DETECT); Enteroaggregative E. coli-EAEC Not Detected (NOT DETECT); Enteropathogenic E. coli-EPEC Not Detected (NOT DETECT); Enterotoxigenic E. coli-ETEC Detected (NOT DETECT); Plesiomonas Shigelloides Not Detected (NOT DETECT); Salmonella Sp Not Detected (NOT DETECT); Shiga Toxin-prod E. coli-STEC Detected (NOT DETECT); Vibrio Cholerae Not Detected (NOT DETECT); Vibrio Sp Not Detected (NOT DETECT); Yersinia Enterocolitica Not Detected (NOT DETECT)
[2024-05-05 13:34] LABS: Adenovirus F 40/41 Not Detected (NOT DETECT); Astrovirus Not Detected (NOT DETECT); Cryptosporidium Not Detected (NOT DETECT); Cyclospora Cayetanensis Not Detected (NOT DETECT); Entamoeba Histolytica Not Detected (NOT DETECT); Giardia Lamblia Not Detected (NOT DETECT); Norovirus GI/GII Not Detected (NOT DETECT); Rotavirus A Not Detected (NOT DETECT); Sapovirus Not Detected (NOT DETECT); Shigella/Enteroin E. coli-EIEC Not Detected (NOT DETECT)
[2024-05-05 15:30] VITALS: BP 125/74
[2024-05-05] MEDS ORDERED: Albumin (Human) 25gm/100ml 100 ML IV SCH (15:35)
[2024-05-05] MEDS ORDERED: Vancomycin HCl 125 MG Cap PO SCH (16:00)
--- NOTE | 2024-05-05 17:15 | NUR ---
PT CONTINUES TO BE CONFUSED TO SITUATION AND FORGETFUL. STATES THAT PT HAS NOT HAD ANY ALCOHOL FOR AT LEAST 4-5 DAYS. PT LESS AGITATED ONCE MEDICATED WITH TYLENOL FOR HIP AND SHOULDER PAIN. PT HAD 3 LARGE LOOSE BM TODAY, SAMPLE COLLECTED AND RESULTED POSITIVE FOR C-DIF, E.COLI WITH SHIGA TOXIN, AND ENTEROTOXIGENIC E.COLI. ENTERIC CONTACT PRECAUTIONS CONTINUED, STARTED ORAL VANCO. EDUCATION PROVIDED TO PT AND . POOR ORAL INTAKE, IV FLUIDS ORDERED AND INFUSING, ALBUMIN INFUSING. PT WORKED WITH PT AND OT TODAY, STOOD AT SIDE OF BED, TOO WEAK FOR MUCH MORE. PT COOPERATIVE WITH CARE, ABLE TO MAKE NEEDS KNOWN, CALL LIGHT IN REACH.
[2024-05-05 19:39] VITALS: BP 137/77
[2024-05-06 02:51] VITALS: BP 141/84
[2024-05-06 06:27] LABS: TACROLIMUS BY HPLC-MS/MS 5.8 ng/mL
[2024-05-06 06:27] LABS: TACROLIMUS BY HPLC-MS/MS 7.5 ng/mL
--- NOTE | 2024-05-06 06:50 | NUR ---
SHIFT SUMMARY PT SITTING UP IN BED AT START OF SHIFT. EXPRESSED DIFFICULTY IN GETTING COMFORTABLE. PT FLOATED ON PILLOWS. IV FLUIDS INFUSING @ 50ML/HR. 2+ EDEMA IN BLE HAS DECREASED TO 1+. PT HAS HAD NO BMS TONIGHT. HE HAS BEEN PLEASANT AND COOPERATIVE WITH HIS CARE.
[2024-05-06 07:00] LABS: Hematocrit 29.2 % (37.0-53.0); Hemoglobin 9.8 g/dL (13.5-17.5)
[2024-05-06 07:28] VITALS: BP 150/82
[2024-05-06 07:41] LABS: Albumin, Blood 2.5 g/dL (3.4-5.0); Anion Gap 13 mmol/L (3-11); Blood Urea Nitrogen 46 mg/dL (8-24); Bun/Creatinine Ratio 20.3 (12.0-20.0); CO2, Blood 21 mmol/L (21-32); Calcium, Blood 8.4 mg/dL (8.5-10.1); Chloride, Blood 102 mmol/L (98-108); Creatinine, Blood 2.27 mg/dL (0.60-1.20); Free Thyroxine 0.97 ng/dL (0.70-1.60); Glomerular Filtration Rate 33 (60-); Glucose, Blood 87 mg/dL (70-99); Magnesium, Blood 1.8 mg/dL (1.6-2.4); Phosphorus, Blood 3.8 mg/dL (2.5-4.9); Potassium, Blood 4.2 mmol/L (3.5-5.5); Sodium, Blood 132 mmol/L (136-145); Triiodothyronine, Free 1.14 pg/mL (2.18-3.98); Uric Acid, Blood 10.6 mg/dL (3.5-7.2)
[2024-05-06 15:00] VITALS: BP 135/74
[2024-05-06] MEDS ORDERED: Darbepoetin Alfa In Albumn Sol 40 MCG/0.4 ML SC SCH (16:00)
[2024-05-06 19:51] VITALS: BP 133/84
[2024-05-06] MEDS ORDERED: HydrALAZINE HCl 25 MG Tab PO ONE (22:35)
[2024-05-06] MEDS ORDERED: TraMADol HCl 50 MG Tab PO ONE (22:35)
[2024-05-06] MEDS ORDERED: HyDROXyzine HCl 25 MG Tab PO ONE (22:40)
--- NOTE | 2024-05-06 22:40 | NUR ---
PT C/O PAIN, NOT ADEQUATELY CONTROLLED WITH TYLENOL, REQUESTING SOMETHING STRONGER. PT ALSO REQUESTING SOMETHING TO HELP HIM SLEEP. DR. GALVAN NOTIFIED. UP TO SEE PT, THEN ORDERED TRAMADOL AND HYDROXYZINE X1- SEE EMAR.
[2024-05-07 02:23] VITALS: BP 151/93
--- NOTE | 2024-05-07 05:05 | NUR ---
SHIFT SUMMARY PT A&OX3- CONFUSED AT TIMES THROUGH THE NIGHT. MEDICATED FOR LEFT SHOULDER PAIN X2- SEE EMAR. INCONT. OF URINE AND STOOL- MALE PUREWICK PLACED. LARGE AMOUNT OF LIQUID STOOL X1. C-DIFF ISOLATION MAINTAINED. PT IS A 2 MAX ASSIST TO TURN SIDE TO SIDE. SKIN REMAINS INTACT. SLEPT ON/OFF THROUGH THE NIGHT. BED IN LOWEST POSITION, CALL LIGHT WITHIN REACH, SIDE RAILS UP X2.
[2024-05-07 06:22] LABS: BASOPHILS ABSOLUTE AUTO 0.03 K/mm3 (0.00-0.23); BASOPHILS PERCENT AUTO 1 % (0-2); EOSINOPHILS ABSOLUTE AUTO 0.09 K/mm3 (0.00-0.68); EOSINOPHILS PERCENT AUTO 2 % (0-6); Hematocrit 29.8 % (37.0-53.0); Hemoglobin 9.8 g/dL (13.5-17.5); IMMATURE GRAN ABSOLUTE AUTO 0.05 K/mm3 (0.00-0.10); IMMATURE GRAN PERCENT AUTO 1 % (0-1); LYMPHOCYTES ABSOLUTE AUTO 1.53 K/mm3 (0.84-5.20); LYMPHOCYTES PERCENT AUTO 35 % (21-46); MONOCYTES ABSOLUTE AUTO 0.47 K/mm3 (0.16-1.47); MONOCYTES PERCENT AUTO 11 % (4-13); Mean Corpuscular HGB Conc 32.9 g/dL (31.5-36.5); Mean Corpuscular Volume 104 fL (80-100); Mean Platelet Volume 9.1 fL (9.1-12.4); NEUTROPHILS ABSOLUTE AUTO 2.15 K/mm3 (1.96-9.15); NEUTROPHILS PERCENT AUTO 50 % (41-73); Platelet Count 134 K/mm3 (150-400); RDW Coefficient Variation 13.1 % (11.7-14.2); RDW Standard Deviation 49.4 fL (35.1-46.3); Red Blood Cell Count 2.88 M/mm3 (4.30-5.90); White Blood Cell Count 4.32 K/mm3 (4.00-11.30)
[2024-05-07 06:47] LABS: Albumin, Blood 2.3 g/dL (3.4-5.0); Anion Gap 14 mmol/L (3-11); Blood Urea Nitrogen 42 mg/dL (8-24); CO2, Blood 19 mmol/L (21-32); Calcium, Blood 8.2 mg/dL (8.5-10.1); Chloride, Blood 106 mmol/L (98-108); Creatinine, Blood 1.91 mg/dL (0.60-1.20); Glomerular Filtration Rate 40 (60-); Glucose, Blood 66 mg/dL (70-99); Magnesium, Blood 2.1 mg/dL (1.6-2.4); Phosphorus, Blood 3.9 mg/dL (2.5-4.9); Potassium, Blood 4.2 mmol/L (3.5-5.5); Sodium, Blood 135 mmol/L (136-145)
[2024-05-07 07:09] VITALS: BP 150/80
[2024-05-07] MEDS ORDERED: Sodium Bicarbonate 650 MG Tab PO SCH (09:00)
[2024-05-07] MEDS ORDERED: OxyCODONE HCL 5 MG TAB PO PRN (09:55)
--- NOTE | 2024-05-07 10:53 | NUR ---
MORNING NOTE ASSUMED CARE OF PATIENT AT APPROX. 0700. BEDSIDE REPORT DONE. PATIENT A&OX3 THIS AM. NIGHTSHIFT REPORTED PATIENT HALLUCINATING DURING NIGHT. AT BEDSIDE THIS AM AND UPDATED ON PATIENT. PER DR. JETER, NS RATE DECREASED TO 75. ORDERS TO DECREASE RATE AGAIN AT NOON TO 50MLS/HR. PATIENT PLEASANT AND COOEPRATIVE WITH CARE. REPORT GIVEN TO KELLI MOULTON TO ASSUME CARE OF PATIENT AT APPROX.0900.
[2024-05-07] MEDS ORDERED: NS 1,000 ML IV SCH (13:05)
[2024-05-07] MEDS ORDERED: PredniSONE 20 MG Tab PO SCH (15:25)
[2024-05-07 15:30] VITALS: BP 154/81
--- NOTE | 2024-05-07 17:59 | NUR ---
ASSUMED CARE ASSUMED CARE OF PATIENT AT 1745. PATIENT EATING WELL. PATIENT BROUGHT IN FOOD FOR PATIENT. PATIENT DENIES NEEDS AT THIS TIME. CALL LIGHT WITHIN REACH.
--- NOTE | 2024-05-07 18:00 | NUR ---
SHIFT SUMMARY PT RESTLESS AT TIMES IN BED TODAY. WAS STATING THIS MORNING HE WASN'T GOING TO WORK WITH P.T. DUE TO BEING TIRED FROM YESTERDAY. ENCOURAGED HIM TO DO P.T. DESPITE BEING TIRED BECAUSE ITS LIMITED. WHEN P.T. ARRIVED PT DID AGREE AND THERAPY COMPLETED. MEDICATED FOR PAIN TO L ELBOW WHICH PT REPORTED DIDN'T IMPROVE IT. STATED SHE FELT IT WAS GETTING WORSE THAN EARLIER IN DAY ABOUT 1230. DISCUSSED WITH CONCERN AND HE REASSESSED AND ORDERED PREDNISONE FOR GOUT S/S. PT STILL REPORTS INCREASED L ELBOW PAIN THIS EVENING. EXPLAINED DX TO . REPORT GIVEN TO CARA PEREIRA.
[2024-05-07 18:12] LABS: CMV QNT BY NAAT, PL LOG IU/ML Not Detected; CMV QNT BY NAAT, PLASMA INTERP Not Detected (Not Detected); CMV QNT BY NAAT, PLASMA IU/ML Not Detected
[2024-05-07 20:27] LABS: PCO2 Venous 34.3 mmHg (38-42); pH Blood Venous 7.21 (7.34-7.37)
[2024-05-07 20:28] LABS: Base Excess Venous -14.4 mmol/L; Bicarbonate Venous 14.1 mmol/L (24.0-30.0)
[2024-05-07 20:32] LABS: BASOPHILS ABSOLUTE AUTO 0.04 K/mm3 (0.00-0.23); BASOPHILS PERCENT AUTO 0 % (0-2); EOSINOPHILS ABSOLUTE AUTO 0.02 K/mm3 (0.00-0.68); EOSINOPHILS PERCENT AUTO 0 % (0-6); Hematocrit 36.6 % (37.0-53.0); Hemoglobin 11.9 g/dL (13.5-17.5); IMMATURE GRAN ABSOLUTE AUTO 0.24 K/mm3 (0.00-0.10); IMMATURE GRAN PERCENT AUTO 2 % (0-1); LYMPHOCYTES ABSOLUTE AUTO 1.78 K/mm3 (0.84-5.20); LYMPHOCYTES PERCENT AUTO 18 % (21-46); MONOCYTES ABSOLUTE AUTO 0.29 K/mm3 (0.16-1.47); MONOCYTES PERCENT AUTO 3 % (4-13); Mean Corpuscular HGB 34.1 pg (26.0-34.0); Mean Corpuscular HGB Conc 32.5 g/dL (31.5-36.5); Mean Corpuscular Volume 105 fL (80-100); Mean Platelet Volume 8.9 fL (9.1-12.4); NEUTROPHILS ABSOLUTE AUTO 7.68 K/mm3 (1.96-9.15); NEUTROPHILS PERCENT AUTO 76 % (41-73); Platelet Count 228 K/mm3 (150-400); RDW Coefficient Variation 13.2 % (11.7-14.2); RDW Standard Deviation 50.8 fL (35.1-46.3); Red Blood Cell Count 3.49 M/mm3 (4.30-5.90); White Blood Cell Count 10.05 K/mm3 (4.00-11.30)
[2024-05-07 20:36] VITALS: BP 131/90
--- NOTE | 2024-05-07 20:44 | NUR ---
RAPID RESPONSE AT 1946, PT YELLING OUT, "I CAN'T BREATHE, LET ME UP". WHEN THIS RN ARRIVED TO ROOM, PT GASPING FOR BREATH, DIAPHORETIC, O2 SATS ON ROOM AIR 80%, AND HEART RATE 132. 2LNC PLACED ON PT WITH O2 SATS QUICKLY UP TO 90%, SOB UNCHANGED. THIS RN CALLED TELE, TO ASK ABOUT HEART RATE, PT SINUS TACH 120-130'S BEGINNING AT 1946. RAPID RESPONSE CALLED, TEAM ARRIVED - SEE RAPID RESPONSE PAPERWORK. LABS DRAWN, CXR DONE, BREATHING TREATMENT PROVIDED, O2 INCREASED TO 6L, IVF STOPPED. PT TRANSFERRED TO PCU 15, REPORT GIVEN AT BEDSIDE. PT'S SON, CATA, WORKS IN THE ED, CAME TO ROOM, CATA INFORMED PT'S OF EVENTS. PRIOR TO THE ABOVE EVENTS, DURING BEDSIDE SHIFT REPORT, PT LYING IN BED WITHOUT COMPLAINTS TALKING WITH WHO WAS AT BEDSIDE.
[2024-05-07 20:54] LABS: Albumin, Blood 2.6 g/dL (3.4-5.0); Albumin/Globulin Ratio 0.7 (0.8-1.8); Bilirubin, Total 0.7 mg/dL (0.1-1.0); Bun/Creatinine Ratio 21.7 (12.0-20.0); Calcium, Blood 8.6 mg/dL (8.5-10.1); Creatinine, Blood 1.8 mg/dL (0.60-1.20); Globulin, Blood 3.8 g/dL (2.2-4.0); Potassium, Blood 4.7 mmol/L (3.5-5.5); Total Protein, Blood 6.4 g/dL (6.4-8.2)
[2024-05-07] MEDS ORDERED: Lactobacil 2-S.Thermo-Bifido 1 1 Cap PO SCH (21:00)
[2024-05-07] MEDS ORDERED: Furosemide 10 MG/ML 4ML Vial IV ONE (21:00)
[2024-05-07] MEDS ORDERED: Bumetanide 0.25 MG/ML 4ML ViaL IV STA (21:27)
[2024-05-07 22:22] LABS: Beta-hydroxybutyrate 54.8 mg/dL (0.2-2.8)
[2024-05-07] MEDS ORDERED: LORazepam 2 MG/ML 1ML Injection IV ONE (22:35)
--- NOTE | 2024-05-07 23:57 | NUR ---
PT ARRIVED TO PCU AT 2039 THIS RN ASSUMED CARE AT 2039 AND RECIEVED BEDSIDE SHIFT REPORT. PT WAS AOX3 WITH TREMORS AND INTERMITTENT CONFUSION. PT SON SAID INT CONFUSION WAS BASELINE. PT REPORTED FEELING ANXIOUS AND REFUSING CPAP/BIPAP. PT ON 4-5L NC. WILL CONTINUE PLAN OF CARE.
[2024-05-07 23:59] LABS: Albumin, Blood 2.6 g/dL (3.4-5.0); Albumin/Globulin Ratio 0.7 (0.8-1.8); Bilirubin, Total 0.7 mg/dL (0.1-1.0); Bun/Creatinine Ratio 21.2 (12.0-20.0); Calcium, Blood 8.6 mg/dL (8.5-10.1); Creatinine, Blood 2.03 mg/dL (0.60-1.20); Globulin, Blood 3.6 g/dL (2.2-4.0); Total Protein, Blood 6.2 g/dL (6.4-8.2)
[2024-05-08] VITALS (20 sets, daily range): BP systolic 91–143; BP diastolic 58–122
[2024-05-08 00:38] LABS: PCO2 Arterial 35.2 mmHg (35-45); PO2 Arterial 96.2 mmHg (80-100)
[2024-05-08 00:39] LABS: pH Blood Arterial 7.13 (7.35-7.45)
[2024-05-08] MEDS ORDERED: Sodium Bicarb 8.4% Inj 150 MEQ in Dextrose 5% 1,000 ML IV SCH (00:45)
[2024-05-08] MEDS ORDERED: Sodium Bicarb 8.4% 1 MEQ/ML 50 ML Vial IV ONE ×2 (00:50→03:50)
[2024-05-08 01:42] LABS: Albumin, Blood 2.6 g/dL (3.4-5.0); Albumin/Globulin Ratio 0.7 (0.8-1.8); Bilirubin, Total 0.9 mg/dL (0.1-1.0); Calcium, Blood 8.7 mg/dL (8.5-10.1); Creatinine, Blood 2.1 mg/dL (0.60-1.20); Globulin, Blood 3.8 g/dL (2.2-4.0); Potassium, Blood 5.3 mmol/L (3.5-5.5); Total Protein, Blood 6.4 g/dL (6.4-8.2)
[2024-05-08] MEDS ORDERED: Sodium Zirconium Cyclosilicate 10 GM Packet PO SCH (02:45)
[2024-05-08] MEDS ORDERED: N-Acetylcysteine 600 MG CAP PO SCH (02:45)
[2024-05-08 03:43] LABS: Bicarbonate Venous 13.7 mmol/L (24.0-30.0)
[2024-05-08 03:43] LABS: Hematocrit 33.9 % (37.0-53.0); Hemoglobin 10.7 g/dL (13.5-17.5)
[2024-05-08 03:44] LABS: Base Excess Venous -14.5 mmol/L
--- NOTE | 2024-05-08 03:55 | NUR ---
SHIFT SUMMARY PT BECAME INCREASINGLY MORE CONFUSED THE NIGHT WENT ON. REFER TO LABS TO SEE WHAT WAS DRAWN AND RESULTED. BICARB GTT STARTED PER NEPHRO. 2X PUSHES OF BICARB ALSO GIVEN OVER NIGHT. PT UNDERWENT CHEST CT W/ CONTRAST FOR PE RULE OUT. PT MENTATION IMPROVED AFTER FIRST PUSH OF BICARB. PT DENIES CHEST PAIN BUT REMAINED DYSPNEIC OVERNIGHT. PT HR REMAINED ST OVERNIGHT IN THE 110'S. PT REMAINED ON 4-6L NC OVERNIGHT. SON OF PT VISITED SEVERAL TIMES WITH UPDATE GIVEN. WILL CONTINUE PLAN OF CARE.
[2024-05-08] MEDS ORDERED: Piperacillin/Tazobactam Sod 3.375 GM in NS 100 ML IV SCH (04:00)
[2024-05-08 04:02] LABS: PCO2 Venous 35.4 mmHg (38-42)
[2024-05-08 04:03] LABS: pH Blood Venous 7.19 (7.34-7.37)
[2024-05-08 04:06] LABS: Albumin, Blood 2.5 g/dL (3.4-5.0); Anion Gap 22 mmol/L (3-11); Blood Urea Nitrogen 43 mg/dL (8-24); Bun/Creatinine Ratio 19.6 (12.0-20.0); CO2, Blood 14 mmol/L (21-32); Calcium, Blood 8.6 mg/dL (8.5-10.1); Chloride, Blood 102 mmol/L (98-108); Creatinine, Blood 2.19 mg/dL (0.60-1.20); Glomerular Filtration Rate 34 (60-); Glucose, Blood 172 mg/dL (70-99); Magnesium, Blood 1.9 mg/dL (1.6-2.4); Phosphorus, Blood 6.5 mg/dL (2.5-4.9); Potassium, Blood 5.4 mmol/L (3.5-5.5); Sodium, Blood 133 mmol/L (136-145)
[2024-05-08] MEDS ORDERED: Piperacillin/Tazobactam Sod 4.5 GM in NS 100 ML IV SCH (06:00)
--- NOTE | 2024-05-08 11:45 | NUR ---
PT IS ALERT, ORIENTED INTERMITTENTLY X1-2. THIS AM HE WAS FREE OF HALLUCINATIONS BUT THE DAY PROGRESSED PT BEGAN TO GET AGITATED DUE TO VISUAL HALLUCINATIONS, HE REPORTS THAT HE IS SEEING RATS IN THE ROOM WHICH IS VERY DISTRESSING TO HIM. HE RAISED HANDS IN AN AGGRESSIVE MANNER TO THIS RN AND , BUT HE REPORTS HE WAS NOT TRYING TO HURT US THAT HE WAS TRYING TO KEEP US FROM THE RATS HE WAS SEEING IN THE ROOM. PER PT DOES NOT DRINK ETOH, HOWEVER DOES CONSUME IT OCCASTIONALLY BUT IN A LONG TIME. BLADDER SCAN WITH 10ML, WHEN TRANSFERED TO ICU BED NOT HAS NOTED TO HAVE SMALL AMOUNT OF URINE IN ATTENDS. VSS. PT ON ROOM AIR WITH SPO2 >95%. THERE WAS NO RESPIRATORY DISTRESS NOTED IN PCU. REPORT WAS GIVEN TO JOAO IN ICU. PT WAS TRANSFERRED TO ICU VIA LYDIA TOBAR INFUSING
--- NOTE | 2024-05-08 12:16 | NUR ---
PT TRANSFERED TO ICU 5 FROM PCU PCU STATUS. PT IS OFF ON DATE BY ONE DAY. CANNOT STATE WHERE HE IS OR WHY HE IS HERE. PUPILS EQUAL AND REACTIVE. EYE'S WIDE AND PT PANICS WITH REPOSITIONING BUT WILL CALM WITH VERBAL DIRECTION. FOLLOWS SIMPLE COMMANDS. ON RA SPO2 93-96%. BED ALARM ARMED FOR SAFETY.
[2024-05-08 12:52] LABS: EBV QNT BY NAAT, PL LOG IU/ML Not Detected; EBV QNT BY NAAT, PLASMA INTERP Not Detected (Not Detected); EBV QNT BY NAAT, PLASMA IU/ML Not Detected
[2024-05-08 13:11] LABS: Albumin, Blood 2.4 g/dL (3.4-5.0); Anion Gap 21 mmol/L (3-11); Blood Urea Nitrogen 48 mg/dL (8-24); Bun/Creatinine Ratio 20.5 (12.0-20.0); CO2, Blood 18 mmol/L (21-32); Calcium, Blood 8.6 mg/dL (8.5-10.1); Chloride, Blood 100 mmol/L (98-108); Creatinine, Blood 2.34 mg/dL (0.60-1.20); Glomerular Filtration Rate 32 (60-); Glucose, Blood 241 mg/dL (70-99); Phosphorus, Blood 6.4 mg/dL (2.5-4.9); Potassium, Blood 4.6 mmol/L (3.5-5.5); Sodium, Blood 134 mmol/L (136-145)
--- NOTE | 2024-05-08 16:16 | NUR ---
THORACENTESIS COMPLETE, 1200ML OUTPUT. PT TOLERATED WELL. GOT TO SIDE OF BED WITH 2 PERSON ASSIST. ATTEMPTED TO STAND AFTER PROCEDURE WITH WALKER AND 2 PERSON ASSIST BUT TOO WEAK. SOB HAS IMPROVED ALREADY. AT BEDSIDE.
[2024-05-08 16:37] LABS: Automated BF RBC Count 0.002 M/mm3 (0-0); Automated BF WBC Count 0.903 K/mm3 (0-999); Body Fluid WBC Count 903 /mm3 (0-999)
[2024-05-08 16:38] LABS: RBC Count, Body Fluid 2000 /mm3 (0-0)
--- NOTE | 2024-05-08 16:39 | NUR ---
SUMMARY PT TRANSFERED FROM PCU AT 1200 TODAY. PT'S MENTATION IS SLIGHTLY BETTER. WILL BE CONVERSING ABOUT OLD TIMES WITH HIS THEN SAY SOMETHING OFF THE WALL THAT DOES NOT MAKE SENSE. THORACENTESIS TODAY WITH 1200 ML OFF. BEFORE THORACENTESIS PT WOULD GET SOB WITH EXERTION AND AUDIBLY WHEEZING. PT RESP IS LESS LABORED NOW AND IS NOT WHEEZING ANYMORE. REPORT GIVEN TO JACKELIN PEREIRA WHO WILL ASSUME CARE. NO SIGN OF DISTRESS.
[2024-05-08 16:59] LABS: pH, Body Fluid 7.5
[2024-05-08 17:08] LABS: Lactate Dehydrogenase, Body Fl 84 U/L
[2024-05-08 17:21] LABS: Total Cell Count, Body Fluid 100
[2024-05-08 17:37] LABS: Appearance, Body Fluid Clear (Clear); Color, Body Fluid Yellow (None-Yellow)
--- NOTE | 2024-05-08 23:06 | NUR ---
PT IS PARANOID, STATES "IF YOU'RE GOING TO KILL ME, JUST KILL ME" "I SEE YOU ALL LAUGHING AT ME" WON'T TAKE HIS MEDICATIONS BECAUSE "I KNOW YOU PUT THAT FUCKING FILM ON THEM". HIS CALLED TO CHECK UP ON HIM AND HE DIDN'T BELIEVE THAT IT WAS HER ON THE PHONE THEN RIPPED THE CORD OUT OF THE PHONE WHEN HE WAS DONE. HE STARTED TO RIP OFF HIS PULSE OX AND IV BUT I WAS ABLE TO INTERVENE, THEN HE PICKED UP HIS CALL LIGHT AND THREATENED TO HIT WITH IT THEN PUT HIS FIST IN THE AIR AND THREATENED ME AGAIN. ELIE AND GRISELDA CAME IN THE ROOM TO HELP WITH THE SITUATION AND CALM HIM DOWN. HALLUCINATING ABOUT DOGS IN THE ROOM AND PEOPLE WALKING BY THE DOORWAY. PT'S RETURNED TO STAY WITH HIM TONIGHT. HE IS MORE CALM BUT STILL PARANOID AND HALLUCINATING DESPITE NEAR CONSTANT REORIENTATION.
[2024-05-09] MEDS ORDERED: Haloperidol Lactate Inj. 5 MG/ML Injection IM PRN (00:45)
[2024-05-09] MEDS ORDERED: Haloperidol Lactate Inj. 5 MG/ML Injection IV ONE (01:00)
[2024-05-09 03:01] VITALS: BP 113/69
[2024-05-09 03:36] LABS: Hematocrit 26.4 % (37.0-53.0); Hemoglobin 8.7 g/dL (13.5-17.5)
[2024-05-09 03:54] LABS: Albumin, Blood 2.1 g/dL (3.4-5.0); Anion Gap 14 mmol/L (3-11); Blood Urea Nitrogen 50 mg/dL (8-24); Bun/Creatinine Ratio 18.6 (12.0-20.0); CO2, Blood 27 mmol/L (21-32); Calcium, Blood 8.3 mg/dL (8.5-10.1); Chloride, Blood 101 mmol/L (98-108); Creatinine, Blood 2.69 mg/dL (0.60-1.20); Glomerular Filtration Rate 27 (60-); Glucose, Blood 164 mg/dL (70-99); Magnesium, Blood 1.8 mg/dL (1.6-2.4); Phosphorus, Blood 4.4 mg/dL (2.5-4.9); Sodium, Blood 138 mmol/L (136-145)
[2024-05-09] MEDS ORDERED: NS 1,000 ML IV SCH (05:00)
--- NOTE | 2024-05-09 06:17 | NUR ---
PLEASE CALL HOSPITALIST IF AMMONIA LEVEL IS HIGH PER JETER.
[2024-05-09] MEDS ORDERED: Haloperidol Lactate Inj. 5 MG/ML Injection IV PRN (08:25)
[2024-05-09] MEDS ORDERED: OLANZapine ODT 5 MG Tab MM PRN (08:25)
[2024-05-09] MEDS ORDERED: Midodrine 5 MG Tab PO SCH (09:00)
[2024-05-09] MEDS ORDERED: PredniSONE 20 MG Tab PO SCH (09:00)
[2024-05-09 12:33] VITALS: BP 113/74
[2024-05-09 17:09] VITALS: BP 119/83
[2024-05-09] MEDS ORDERED: Ipratropium/Albuterol SulF 2.5-0.5MG/3 ML Amp INH PRN (17:35)
[2024-05-09] MEDS ORDERED: Rivaroxaban 10 MG Tab PO SCH (18:00)
[2024-05-09] MEDS ORDERED: Albumin Human 50 ML IV ONE (18:30)
[2024-05-09] MEDS ORDERED: Bumetanide 0.25 MG/ML 10ML Vial IV ONE (18:30)
--- NOTE | 2024-05-09 18:51 | NUR ---
PT REMAINS CONFUSED THROUGHOUT SHIFT. HE HAD A PERIOD OF AGRESSION AND WAS MEDICATED PER EMAR. HE HAS BEEN COOPERATIVE SINCE. PT WAS ON ROOM AIR UNTIL APPROXIMATELY 1700 WHEN HE WAS STARTED ON OXYGEN VIA NASAL CANNULA. PTS BREATHING HAS BEEN ACUTELY WORSE.
--- NOTE | 2024-05-09 20:00 | NUR ---
ASSUMED CARE OF PT AT 1900. REPORT RECEIVED AT BEDSIDE. PT PRESENTS IN BED, DISORIENTED, AND PULLING FREQUENTLY AT HIS OXYGEN TUBING AND OTHER VITAL LINES. PT NEEDS TO BE REORIENTED, BUT THIS ONLY WORKS FOR SHORT PERIOD OF TIME. VERY RESISTANT TO CARE. NEEDS FREQUENT CUES AND TEACHING DONE. WILL REVEIW CHART AND PLAN OF CARE FOR THIS PT.
[2024-05-09] MEDS ORDERED: QUEtiapine Fumarate 25 MG Tab PO SCH (21:00)
[2024-05-10] VITALS (26 sets, daily range): BP systolic 110–152; BP diastolic 59–102
--- NOTE | 2024-05-10 02:54 | NUR ---
PT HAS PERIODICALLY REMOVED HIS OXYGEN WHEREAS HE WILL DESATURATE TO 75 PERCENT. PT DENIES REMOVING OXYGEN EVEN THOUGH HE HAS REMOVED CANNULA > 20 TIMES THIS SHIFT. PT HAS BEEN INCONTINENT TO URINE ONCE. DID DO A BLADDER SCAN OF PT WITH VALUE 91 ML. PT ASSISTS SOME WITH TURNS. CONTINUES WITH BEING CONFUSED WITH SHORT TERM DEFICITS. PT IS ABLE TO HOLD CONVERSATION REGARDING THE PAST WHEN QUESTIONED ABOUT HIS LIVER TRANSPLANT, AND HIS SURGERY TO HIS LEFT HIP. PT'S CALLS AT HS TO CHECK ON HER . UPDATE GIVEN.
[2024-05-10 04:25] LABS: Hematocrit 28.6 % (37.0-53.0); Hemoglobin 9.4 g/dL (13.5-17.5)
[2024-05-10 04:41] LABS: Albumin, Blood 2.4 g/dL (3.4-5.0); Anion Gap 14 mmol/L (3-11); Blood Urea Nitrogen 51 mg/dL (8-24); Bun/Creatinine Ratio 18.3 (12.0-20.0); CO2, Blood 27 mmol/L (21-32); Calcium, Blood 8.4 mg/dL (8.5-10.1); Chloride, Blood 102 mmol/L (98-108); Creatinine, Blood 2.78 mg/dL (0.60-1.20); Glomerular Filtration Rate 26 (60-); Glucose, Blood 146 mg/dL (70-99); Phosphorus, Blood 5.8 mg/dL (2.5-4.9); Potassium, Blood 3.9 mmol/L (3.5-5.5); Sodium, Blood 139 mmol/L (136-145)
--- NOTE | 2024-05-10 05:59 | NUR ---
PT HAS BEEN ABLE TO MAINTAIN CONVERSATIONS APPROPRIATELY AT TIMES. DOES NOT RECALL WHAT BUILDING HE IS IN. DOES EXPRESS HE IS IN [place]. HAVE REMOVED BOTH SALINE LOCKS WITHOUT ISSUES SECONDARY TO BEING OUT DATE. NEW 18 GAUGE PLACED TO UPPER/LOWER FOREARM RIGHT. JUST BELOW AC. PT TOLERATES THIS VERY WELL. LABS OBTAINED FROM IV START. PT HAS LOUD AUDIBLE WHEEZING. OCCASSIONAL NON-PRODUCTIVE COUGH. WHEN PT LEAVES HIS OXYGEN IN PLACE, PT MAINTAINS SATURATIONS > 95 PERCENT WITH 3-4 LITERS. WHEN HE REMOVES HIS O2, PT'S SATURATIONS WILL DROP TO 75 PERCENT. DOES HAVE A DELAYED RECOVERY TO ACHIEVE > 90 PERCENT. WILL CONTINUE TO MONITOR PT, AND WILL REPORT OFF TO ONCOMING RN.
[2024-05-10] MEDS ORDERED: NS 250 ML IV PRN (06:40)
[2024-05-10] MEDS ORDERED: Albumin Human 50 ML IV SCH (09:30)
[2024-05-10] MEDS ORDERED: Midodrine 5 MG Tab PO SCH (13:00)
[2024-05-10] MEDS ORDERED: Vancomycin HCL 250 MG/5 ML 5ML Oral Syringe PO SCH (14:00)
[2024-05-10] MEDS ORDERED: Bumetanide 10 MG in Bag 1 BAG IV SCH (14:30)
[2024-05-10] MEDS ORDERED: Bumetanide 0.25 MG/ML 10ML Vial IV ONE (14:30)
[2024-05-10] MEDS ORDERED: Metolazone 5 MG Tab PO ONE (14:35)
[2024-05-10 15:32] LABS: Source, Urine Foley catheter
[2024-05-10 15:41] LABS: Appearance, Urine Hazy (Clear); Bilirubin, Urine Neg (Neg); Blood, Urine 1+ (Neg); Color, Urine Yellow (P-Yellow); Glucose Qualitative, Urine Neg (Neg); Ketones, Urine Neg (Neg); Leukocyte Esterase, Urine Neg (Neg); Nitrite, Urine Neg (Neg); Protein, Urine 2+ (Neg); Urobilinogen, Urine NORM (Normal)
[2024-05-10 15:56] LABS: Amorphous Light (0-Heavy); Hyaline Casts 0-2 /lpf (0-2); Mucus Light (0-Heavy); Squamous Epithelial Cells Mod /hpf (Few)
[2024-05-10 15:57] LABS: Bacteria Mod /hpf; Red Blood Cells, Urine 0-2 /hpf (0-2); White Blood Cells, Urine 0-2 /hpf (0-5)
[2024-05-10 15:58] LABS: Renal Epithelial Rare /hpf (0-Rare)
[2024-05-10] MEDS ORDERED: dexmedeTOMIDine 100 ML IV SCH (16:10)
--- NOTE | 2024-05-10 17:03 | NUR ---
FAMILY UPDATE: Pt's son at bedside to visit. Pt's was called with update.
[2024-05-10] MEDS ORDERED: Furosemide 10 MG/ML 4ML Vial IV SCH (18:00)
[2024-05-10] MEDS ORDERED: Bumetanide 0.25 MG/ML 10ML Vial IV SCH (18:00)
--- NOTE | 2024-05-10 19:31 | NUR ---
SHIFT SUMMARY: Pt alert and oriented to self and location this morning. Pt was initially defensive and paranoid with medications. He was up in chair this AM for a few horus. As the day progressed, pt became more confused and dyspnic and was only able to speak a few words at a time. BIPAP and bumex drip started. Pt continued to be agitated, pilling at IVs and lines. RN removed BIPAP for short break and pt became agressive when RN attempted to replace BIPAP. Provider notified and precedex started. PRN zyprexa, haldol, and oxycodone each given once this shift.
--- NOTE | 2024-05-10 21:12 | NUR ---
ASSUMPTION OF CARE ASSUMED CARE OF PATIENT AT 1900, BEDSIDE SHIFT REPORT RECEIVED FROM DARSHAN RN. PT RESTING IN BED, PRECEDEX INFUSING AT 0.5MCG/KG/HR. PT APPEARS TO HAVE FULL BODY TWITCHING WHILE RESTING. PRECEDEX PLACED ON SB FOR ASSESSMENT. WHILE PRECEDEX ON SB, PT OPENS EYES SPONTANEOUSLY, FOLLOWS DIRECTION WHEN PROMPTED SUCH OPENING EYES, SQUEEZING HANDS, WIGGLING HIS TOES AND OPENING HIS MOUTH FOR ORAL CARE. PT ORIENTED TO SELF, ABLE TO STATE NAME AND , UNSURE OF YEAR AND LOCATION. PT FIDGETING, RESTLESS, AND ANXIOUS. REACHING HIS ARMS OUT IN THE AIR LIKE HE IS TRYING TO TOUCH/GRAB SOMETHING. HR 80-105'S SINUS, PT JEANNA'D TO THE 50'S WHILE TURNING TO THE RIGHT SIDE, CAME BACK UP QUICKLY. MAP >65. PT ON BIPAP 14/6 30%, OXYGEN SATURATION >95%. PT PLACED ON 4LPM VIA NC DURING ASSESSMENT TO TAKE MEDICATIONS, OXYGEN REMAINED >95%. PT LAID FLAT TO CHANGE ATTENDS AND LINENS, PT DESATURATED TO THE 70'S. PT SAT UP, AND PLACED BACK ON BIAPAP, OXYGEN SATURATION 98%. ATTENDS IN PLACE, PT WITH ONE EPISODE OF LOOSE BROWN STOOL, CLEANED AND ATTENDS CHANGED. PT HAS LUNA IN PLACE PATENT DRAINING YELLOW URINE TO GRAVITY. PT ON BUMEX DRIP AT 1MG/HR. PIV IN PLACE TO RFA AND LFA. BED IN LOWEST POSITON, CALL LIGHT WITHIN REACH, CARE CONTINUES.
[2024-05-11] VITALS (44 sets, daily range): BP systolic 89–128; BP diastolic 59–93
[2024-05-11 03:28] LABS: Hematocrit 27.8 % (37.0-53.0); Hemoglobin 8.9 g/dL (13.5-17.5)
[2024-05-11 03:52] LABS: Albumin, Blood 2.3 g/dL (3.4-5.0); Anion Gap 16 mmol/L (3-11); Blood Urea Nitrogen 52 mg/dL (8-24); Bun/Creatinine Ratio 20.2 (12.0-20.0); CO2, Blood 25 mmol/L (21-32); Calcium, Blood 8.1 mg/dL (8.5-10.1); Chloride, Blood 104 mmol/L (98-108); Creatinine, Blood 2.57 mg/dL (0.60-1.20); Glomerular Filtration Rate 28 (60-); Glucose, Blood 175 mg/dL (70-99); Magnesium, Blood 1.6 mg/dL (1.6-2.4); Sodium, Blood 141 mmol/L (136-145)
--- NOTE | 2024-05-11 05:54 | NUR ---
SHIFT SUMMARY NO ACUTE CHANGES THIS SHIFT, PT CONTINUES TO REST IN BED, PRECEDEX INFUSING AT 0.7MCG/KG/HR, SEE FLOWSHEET FOR TITRATIONS. PT OPENS EYES TO VERBAL STIMULI, FOLLOWS DIRECTION WHEN PROMPTED. PT SPEECH IS MUMBLED, HARD TO UNDERSTAND AT TIMES, PT ALSO MAKES NONSENSICLE STATEMENTS. PT OCCASIOANLLY REACHES OUT INTO THE AIR IF HE IS TRYING TO TOUCH/GRAB SOMETHING. PT RESTLESS AND FIDGETY IN THE BED WHILE AWAKE. PT MOVES EXTRMEITIES EQUALLY BILATERALLY. HR 60-100'S SINUS, MAP >65. PT ON BIPAP 14/6 30%, OXYGEN SATURATION >95%, ABDOMEN SOFT, BOWEL TONES ACTIVE THROUGHOUT. ATTENDS IN PLACE PT WITH 1 LOOSE BM THIS SHIFT. LUNA IN PLACE PATENT DRAINING YELLOW URINE TO GRAVITY. BUMEX DRIP INFUSING AT 1MG/HR. PIV IN PLACE TO RFA AND LFA. BED IN LOWEST POSITION, CARE CONTINUES.
[2024-05-11] MEDS ORDERED: Mag Sulfate 1 GM/D5% 100ML 100 ML IV STA (08:04)
[2024-05-11] MEDS ORDERED: Sodium Bicarbonate 650 MG Tab PO SCH (09:00)
--- NOTE | 2024-05-11 09:00 | NUR ---
[place] of care: Weaned precedex gtt from 0.7 to 0.4 for morning assessment. Patient arousable to voice & follows all commands. Oriented to self only. Weaned from BiPAP to 4L NC in order to administer morning medications. Within 30 minutes patient became tachypneic & dyspneic with increased work of breathing & audible distress. Precedex increased & placed back on BiPAP with resolution of respiratory symptoms. welder tech at bedside to assess for pleural fluid/need for repeat thoracentesis. Notified by PA in radiology that she declines to perform thora at this time due to insufficient fluid collection. Blood pressure/heart rate stable & patient resting comfortably now. PIV x2 with Bumex gtt & Precedex gtt ongoing. Lewis secure & draining clear yellow urine. Will follow.
--- NOTE | 2024-05-11 10:46 | NUR ---
MD update: Discussed care with Dr. Holguin. Notified him that thora will not be completed today. Also discussed recs to obtain coags & insert feeding tube/consult nutrition to address nutition needs. See orders.
[2024-05-11 11:49] LABS: International Normalized Ratio 1.13
[2024-05-11] MEDS ORDERED: Bisacodyl 10 MG Supp PR PRN (12:50)
[2024-05-11] MEDS ORDERED: Thiamine HCl 100 MG Tab PT SCH (12:50)
[2024-05-11] MEDS ORDERED: Docusate Sodium 100 MG UDC PT PRN (12:50)
--- NOTE | 2024-05-11 15:52 | NUR ---
Attempted to reach pt's spouse by phone in an attempt to provide support and introduce possibility of goals of care in the coming future. PC will attempt to reach spouse again tomorrow.
--- NOTE | 2024-05-11 17:39 | NUR ---
Shift summary: Precedex remains infusing with slight increase in dosage to 0.9 mcgs/kg due to increased restlessness. Remains disoriented to place/time/situation but is cooperative & pleasant. Did complain of generalized pain late in the day - prn oxycodone given x1. Cardiac status is WNL. BiPAP removed at 1600 for oral care & he is tolerating 4L NC with regular respirations/unlabored breathing. Urine output significantly decreased with 140cc out this shift. Bumex gtt decreased per MD order & infusing at 0.5mg/hr. One BM today. Tube feeds initiated at 1400 & he appears to be tolerating well. Will continue to monitor.
--- NOTE | 2024-05-11 19:40 | NUR ---
This rn to assume care of pt at 1900 Pt resting on bed, appears comfortable. Pt has precedex running at 1.1mcg/kg/hr, bumex at 0.5mg/hr. Pt on bipap and appears to be tolerating well, settings: 14/6, 30%. Sinus celina rate of 50s on monitor, bp stable. Pt has oates cath- patent and draining to gravity. Tube feeding running to dobhoff in r. nare at 20ml/hr- goal rate of 45ml/hr w/ 90ml q4hr h2o flushes. Plan of care ongoing.
[2024-05-12] VITALS (31 sets, daily range): BP systolic 76–134; BP diastolic 56–109
[2024-05-12 04:01] LABS: Hematocrit 30.7 % (37.0-53.0); Hemoglobin 9.6 g/dL (13.5-17.5)
[2024-05-12 04:21] LABS: Albumin, Blood 2.4 g/dL (3.4-5.0); Anion Gap 14 mmol/L (3-11); Blood Urea Nitrogen 55 mg/dL (8-24); Bun/Creatinine Ratio 17.4 (12.0-20.0); CO2, Blood 28 mmol/L (21-32); Calcium, Blood 8.4 mg/dL (8.5-10.1); Chloride, Blood 102 mmol/L (98-108); Creatinine, Blood 3.16 mg/dL (0.60-1.20); Glomerular Filtration Rate 22 (60-); Glucose, Blood 227 mg/dL (70-99); Magnesium, Blood 2.1 mg/dL (1.6-2.4); Potassium, Blood 4.2 mmol/L (3.5-5.5); Sodium, Blood 140 mmol/L (136-145)
--- NOTE | 2024-05-12 06:28 | NUR ---
End of shift summary No acute events overnight. Pt slept for good portion of shift. Pt woke up during hours of 0100-approx 0400 and was restless and pulling at lines. Required freqent redirection, and attempted to cooperate. Pt remains confused but is aware he is in hospital. Dr. Ann to bedside this am and dc's Bumex drip. Precedex continues to infuse at 1.3mcg/kg/hr. Pt bi-pap settings remained unchanged. Hr nsr rate of 60s. BP stable w/ maps >65. Afebrile during this shift. No bowel movement. Pt oliguric w/ approx 100ml total urine output via oates cath. Pt - Ksenia calls for update on pt status and sts she will be in for visit today. Plan of care ongoing.
[2024-05-12] MEDS ORDERED: Pantoprazole Sodium 20 MG Tab PO SCH (08:00)
[2024-05-12] MEDS ORDERED: Pantoprazole Sodium 40 MG Injection IV SCH (08:00)
--- NOTE | 2024-05-12 08:58 | NUR ---
BIPAP BREAK Took bipap from 0750 to 0828, put patient on 4L NC. O2 high 90s, more tachypnic.
[2024-05-12] MEDS ORDERED: Albumin (Human) 25gm/100ml 100 ML IV SCH ×2 (10:25→19:25)
[2024-05-12] MEDS ORDERED: Insulin Glargine-Yfgn 100 Unit/mL 3 ML SYR SC SCH (11:00)
[2024-05-12] MEDS ORDERED: Insulin Human Lispro 100 Units/ML 3ML Syringe SC SCH (12:00)
[2024-05-12] MEDS ORDERED: Peg 400/Hypromellose/Glycerin 15 DROP/ML BTL BOTHEYES PRN (16:05)
[2024-05-12 17:10] LABS: Bun/Creatinine Ratio 18.5 (12.0-20.0); Calcium, Blood 8.5 mg/dL (8.5-10.1); Creatinine, Blood 3.41 mg/dL (0.60-1.20); Potassium, Blood 4.1 mmol/L (3.5-5.5)
--- NOTE | 2024-05-12 17:31 | NUR ---
UPDATE Called Dr. Ann with stat BMP results. Renal function worsening. Will consult farm products shipper to place a dialysis line, notify dialysis nurse, and call Dr. Ann back when ready to start dialysis. Notified Dr. Holguin who is going to update patients .
[2024-05-12] MEDS ORDERED: Anticoagulant Sod Citrate Soln 3 ML SYR INJ PRN (19:20)
--- NOTE | 2024-05-12 19:33 | NUR ---
Trialysis catheter placed by Insurance Collector. Thorocentesis performed at bedside as well with over 1000cc output. Will confirm line placement with xray and call dialysis nurse. Peggy and son updated over the phone Other significant events for the day were starting insulin coverage, discontinuing midodrine, and giving 200cc of 25% albumin to attempt to help UO which was not effective.
[2024-05-12 20:02] LABS: Automated BF WBC Count 0.448 K/mm3 (0-999)
[2024-05-12 20:12] LABS: Body Fluid WBC Count 448 /mm3 (0-999)
--- NOTE | 2024-05-12 20:15 | NUR ---
Assumed care of pt at 1900. Dr Clark at bedside for thoracentesis- 1250 out of r. side. Pt had trialysis cath placed to [facility]. Imaging to bedside to confirm placement. Pt remains confused but directible. Oriented to self. Dialysis nurse to room for dialysis. Pt on bipap- see RT notes for settings. NSR via continuous potline monitor. BPs soft following procedure, maps remain >65. Will continue to monitor. Pt has precedex running at 1.2mcg/kg/hr. Lewis cath in place, patent and draining to gravity. Clean bedding applied to bed. Call light w/ in reach. Plan of care ongoing.
[2024-05-12 20:25] LABS: Albumin, Body Fluid 1.6 g/dL; Glucose, Body Fluid 259 mg/dL; Lactate Dehydrogenase, Body Fl 117 U/L; Protein, Body Fluid 3.3 g/dL
[2024-05-12 20:27] LABS: Appearance, Body Fluid Clear (Clear); Color, Body Fluid L Yellow (None-Yellow); RBC Count, Body Fluid 1055 /mm3 (0-0)
[2024-05-12 20:54] LABS: Total Cell Count, Body Fluid 100
[2024-05-12 22:25] LABS: BASOPHILS PERCENT AUTO 0 % (0-2); EOSINOPHILS PERCENT AUTO 0 % (0-6); Hematocrit 25.5 % (37.0-53.0); Hemoglobin 8.4 g/dL (13.5-17.5); IMMATURE GRAN ABSOLUTE AUTO 0.05 K/mm3 (0.00-0.10); IMMATURE GRAN PERCENT AUTO 1 % (0-1); LYMPHOCYTES ABSOLUTE AUTO 0.66 K/mm3 (0.84-5.20); LYMPHOCYTES PERCENT AUTO 16 % (21-46); MONOCYTES ABSOLUTE AUTO 0.39 K/mm3 (0.16-1.47); MONOCYTES PERCENT AUTO 9 % (4-13); Mean Corpuscular HGB 33.9 pg (26.0-34.0); Mean Corpuscular HGB Conc 32.9 g/dL (31.5-36.5); Mean Corpuscular Volume 103 fL (80-100); Mean Platelet Volume 9.9 fL (9.1-12.4); NEUTROPHILS ABSOLUTE AUTO 3.13 K/mm3 (1.96-9.15); NEUTROPHILS PERCENT AUTO 74 % (41-73); Platelet Count 125 K/mm3 (150-400); RDW Coefficient Variation 13.3 % (11.7-14.2); RDW Standard Deviation 50.5 fL (35.1-46.3); Red Blood Cell Count 2.48 M/mm3 (4.30-5.90); White Blood Cell Count 4.23 K/mm3 (4.00-11.30)
[2024-05-12 23:00] LABS: Albumin, Blood 3.7 g/dL (3.4-5.0); Albumin/Globulin Ratio 1.4 (0.8-1.8); Bilirubin, Total 0.5 mg/dL (0.1-1.0); Bun/Creatinine Ratio 16.8 (12.0-20.0); Calcium, Blood 8.3 mg/dL (8.5-10.1); Creatinine, Blood 1.9 mg/dL (0.60-1.20); Globulin, Blood 2.6 g/dL (2.2-4.0); Potassium, Blood 3.2 mmol/L (3.5-5.5); Total Protein, Blood 6.3 g/dL (6.4-8.2)
[2024-05-13] VITALS (65 sets, daily range): BP systolic 73–131; BP diastolic 41–105
[2024-05-13 04:24] LABS: Hematocrit 26.1 % (37.0-53.0); Hemoglobin 8.5 g/dL (13.5-17.5)
[2024-05-13 04:43] LABS: Albumin, Blood 3.3 g/dL (3.4-5.0); Anion Gap 12 mmol/L (3-11); Blood Urea Nitrogen 42 mg/dL (8-24); CO2, Blood 31 mmol/L (21-32); Calcium, Blood 8.4 mg/dL (8.5-10.1); Chloride, Blood 101 mmol/L (98-108); Creatinine, Blood 2.62 mg/dL (0.60-1.20); Glomerular Filtration Rate 28 (60-); Glucose, Blood 183 mg/dL (70-99); Phosphorus, Blood 3.6 mg/dL (2.5-4.9); Potassium, Blood 3.5 mmol/L (3.5-5.5); Sodium, Blood 140 mmol/L (136-145)
--- NOTE | 2024-05-13 05:12 | NUR ---
End of shift summary No acute events overnight. Pt mentation unchanged- confused, oriented to self. Frequenly pulling at lines/dressings but behaviour can be managed with frequent redirection. Appears to be responding to visual/auditory hallucinations. Precedex running at 1.3mcg/kg/hr. Bi-pap settings unchanged during shift- see rt notes for further detail. HR 50-60s NSR/Sinus celina. Soft bps w/ systolics in the 90s. Maps >65. No BM during this shift. Lewis cath patent w/ minimal output during shift. Tube feeding running to dobhoff in r. nare @ goal rate. Pt afebrile. Pt called and was given update on pt status- sts she visit this am. Plan of care ongoing.
[2024-05-13] MEDS ORDERED: Anticoagulant Sod Citrate Soln 3 ML SYR INJ PRN (07:25)
[2024-05-13] MEDS ORDERED: LORazepam 2 MG/ML 1ML Injection IV SCH (10:40)
--- NOTE | 2024-05-13 11:36 | NUR ---
UPDATE CODE STATUS TO DNR SPOKE WITH PT'S , ODILON THIS MORNING BY PHONE. SHE SUMMARIZED HER CONVERSATION WITH DR. LOVE RE: PT'S MEDICAL FRAGILITY. EXPRESSED WANTING TO CHANGE HIS CODE STATUS TO DNR TO [place] WITH PT'S CORE BELIEFS. THIS PC RN REVIEWED WITH DR. LOVE. VERBAL ORDER OBTAINED FOR DNR. ORDER PLACED ACCORDINGLY. WILL UPDATE PRIMARY RN WHEN RN IS AVAILABLE.
--- NOTE | 2024-05-13 12:45 | NUR ---
LUMBAR PUNCTURE PERFORMED APPROXIMATELY [address] LOVE. SAMPLES SENT TO LAB. 6MG ATIVAN TOTAL ADMINISTERED FOR PROCEDURAL SEDATION. PATIENT TOLERATED PROCEDURE AND MEDICATION WELL. WAS ABLE TO LIE FLAT FOR AN HOUR AFTER PROCEDURE.
[2024-05-13 12:48] LABS: Automated CSF WBC Count 0.002 K/mm3 (0-5)
[2024-05-13 13:06] LABS: WBC Count, CSF 2 /mm3 (0-5)
[2024-05-13 13:26] LABS: Appearance, CSF Clear (Clear); Color, CSF No Color (No Color)
[2024-05-13 13:27] LABS: RBC Count, CSF 2 /mm3 (0-0)
[2024-05-13 14:08] LABS: Cryptococcus Neoformans/Gattii Not Detected (NOT DETECT); Enterovirus Not Detected (NOT DETECT); Escherichia Coli K1 Not Detected (NOT DETECT); Haemophilus Influenza Not Detected (NOT DETECT); Herpes Simplex Virus 1 Not Detected (NOT DETECT); Herpes Simplex Virus 2 Not Detected (NOT DETECT); Human Herpesvirus 6 Not Detected (NOT DETECT); Human Parechovirus Not Detected (NOT DETECT); Listeria Monocytogenes Not Detected (NOT DETECT); Neisseria Meningitidis Not Detected (NOT DETECT); Streptococcus Agalactiae Not Detected (NOT DETECT); Streptococcus Pneumoniae Not Detected (NOT DETECT); Varicella Zoster Virus Not Detected (NOT DETECT)
[2024-05-13 14:13] LABS: BASOPHILS PERCENT AUTO 0 % (0-2); EOSINOPHILS ABSOLUTE AUTO 0.04 K/mm3 (0.00-0.68); EOSINOPHILS PERCENT AUTO 1 % (0-6); Hematocrit 27.5 % (37.0-53.0); Hemoglobin 8.8 g/dL (13.5-17.5); IMMATURE GRAN ABSOLUTE AUTO 0.05 K/mm3 (0.00-0.10); IMMATURE GRAN PERCENT AUTO 1 % (0-1); LYMPHOCYTES ABSOLUTE AUTO 0.96 K/mm3 (0.84-5.20); LYMPHOCYTES PERCENT AUTO 19 % (21-46); MONOCYTES ABSOLUTE AUTO 0.42 K/mm3 (0.16-1.47); MONOCYTES PERCENT AUTO 8 % (4-13); Mean Corpuscular HGB 33.7 pg (26.0-34.0); Mean Corpuscular Volume 105 fL (80-100); Mean Platelet Volume 9.7 fL (9.1-12.4); NEUTROPHILS ABSOLUTE AUTO 3.57 K/mm3 (1.96-9.15); NEUTROPHILS PERCENT AUTO 71 % (41-73); Platelet Count 126 K/mm3 (150-400); RDW Coefficient Variation 13.5 % (11.7-14.2); RDW Standard Deviation 52.1 fL (35.1-46.3); RETICULOCYTE ABSOLUTE 0.0472 M/mm3 (0.0200-0.1100); RETICULOCYTE COUNT PERCENT 1.81 % (0.50-2.50); Red Blood Cell Count 2.61 M/mm3 (4.30-5.90); White Blood Cell Count 5.04 K/mm3 (4.00-11.30)
--- NOTE | 2024-05-13 18:24 | NUR ---
SHIFT SUMMARY: Pt was altered but cooperative at the start of shift. He did become more confused, agitated, and agressive shortly before we performed a lumbar puncture. He received a total of 6mg Ativan for the procedure and remained on Precedex. Pt fell asleep during the procedure and remained that way for the remained of shift. He was not tolerating the bipap mask at the start and was trialed on airvo but ultimately required the bipap again. Once medicated for the procedure there were no further issues with the patient wearing the bipap. His SPO2 remained >95%. Patient's blood pressures were soft and heart rate decereased to the 50s. We were able to titrate the Precedex down to 0.6mcg.
--- NOTE | 2024-05-13 19:30 | NUR ---
ASSESSMENT/ASSUMED CARE PT RESTING QUIETLY WITH BIPAP ON. PT OPENS EYES AND FOLLOWS INSTRUCTIONS TO VERBAL STIMULI. NOT ANSWERING QUESTIONS. BACK TO SLEEP QUICKLY AFTER ORAL CARE AND REPOSITIONING. LUNGS CLEAR ON BIPAP / RATE 14 FIO2 35%. RESP EVEN AND NONLABORED. HEART RATE 50-60'S. BP STABLE WITH MAP GREATER THAN 65. BT+ ABD OBESE, ROUND AND FIRM. DOBHOFF TO NARE AT 65 CM WITH TUBE FEED PIVOT 1.5 AT GOAL RATE 45 ML/HR, WATER 90 ML Q4HR FLUSH. TRIALYSIS TO LEFT IJ, DRSG INTACT. ALL PORTS CLAMPED. SITE CLEAR. IV 20G TO RIGHT FOREARM WITH NS AT 10 ML/HR, AND PRECEDEX AT 0.6 MCG/KG/HR. IV SITE CLEAR. IV TO LEFT FOREARM/WRIST SALINE LOCKED, FLUSHED WITHOUT DIFFICULTY. LUNA CATH PATENT DRAINING YELLOW URINE. LUNA ON ICE FOR 24HR URINE. FLEXI SEAL DRAINING BROWN LIQUID STOOL. REPOSITIONED FLEXI SEAL. REPOSITINED PT IN BED.
[2024-05-14] VITALS (94 sets, daily range): BP systolic 76–178; BP diastolic 50–103
[2024-05-14 03:23] LABS: Hematocrit 27.1 % (37.0-53.0); Hemoglobin 8.6 g/dL (13.5-17.5)
[2024-05-14 03:51] LABS: Albumin, Blood 2.8 g/dL (3.4-5.0); Anion Gap 8 mmol/L (3-11); Blood Urea Nitrogen 38 mg/dL (8-24); Bun/Creatinine Ratio 15.1 (12.0-20.0); CO2, Blood 32 mmol/L (21-32); Calcium, Blood 8.1 mg/dL (8.5-10.1); Chloride, Blood 105 mmol/L (98-108); Creatinine, Blood 2.51 mg/dL (0.60-1.20); Glomerular Filtration Rate 29 (60-); Glucose, Blood 230 mg/dL (70-99); Phosphorus, Blood 3.2 mg/dL (2.5-4.9); Sodium, Blood 141 mmol/L (136-145)
--- NOTE | 2024-05-14 06:15 | NUR ---
SHIFT SUMMARY PT RESTING QUIETLY. TURNED SIDE TO SIDE DURING THE NIGHT TO KEEP OFF COCCYX. WEDGE USED WITH TURNING. LUNGS CLEAR ON BIPAP 14/6 RATE 14 FIO2 DOWN TO 30%. RESP RATE 16-20. HEART RATE 50-60'S 1ST DEGREE BLOCK. BP STABLE. BT+ TUBE FEED VIA DOBHOFF AT GOAL RATE 45 ML/HR WITH WATER FLUSH 90 ML Q4HR. 129 ML URINE OUT DURING THE NIGHT. 24 HR URINE IN PROGRESS. FLEXI SEAL WITH 100 ML BROWN LIQUID STOOL OUT. REPORT TO ON COMING NURSE
[2024-05-14] MEDS ORDERED: Anticoagulant Sod Citrate Soln 3 ML SYR INJ PRN (06:55)
[2024-05-14 10:21] LABS: Anti-Xa UFH, PHA Monitoring <0.10 IU/mL; International Normalized Ratio 1.04; Prothrombin Time Results 11.1 Sec (9.7-11.5)
[2024-05-14] MEDS ORDERED: Dose Adjust by Pharmacy XX STA ×2 (10:31→20:24)
[2024-05-14] MEDS ORDERED: Heparin Sodium,Porcine/0.5 NS 500 ML IV SCH (10:35)
[2024-05-14] MEDS ORDERED: Darbepoetin Alfa In Albumn Sol 40 MCG/0.4 ML SC SCH (16:00)
--- NOTE | 2024-05-14 18:18 | NUR ---
Summary. Pt rested in bed this shift. Pt very painful this shift, PRN pain meds used with fair effect, see emar. Pt impulsive and not very cooperative with care. Exhibits poor coping skills. After encouragement, pt using call light more appropriately. C-collar changed to soft collar for comfort per Dr. Downey. This am, pt spit out loose tooth. No other acute events this shift, see chart for further details.
--- NOTE | 2024-05-14 19:25 | NUR ---
ASSESSMENT/ASSUMED CARE PT SITTING UP IN BED WATCHING TV. PT A&O X3 REORIENTED TO PLACE. C/O ACHE IN LEFT SHOULDER DUE TO HOW HE IS LYING IN BED. REPOSITIONED PER PT COMFORT. LUNGD COARSE AND DECREASED IN THE BASES. PT PLACED ON BIPAP 28/11 RATE 14 FIO2 30%. SPO2 UP FROM 90% TO 96% AFTER BIPAP. HEART RATE ELEVATED IN THE 100-120'S. BT+ HYPERACTIVE. DOBHOFF WITH TUBE FEED PIVOT 1.5 AT GOAL RATE 45 ML/HR, WATER 90 ML Q4HR. DOBHOFF AT 65 CM. ABD DISTENDED. FLEXI SEAL IN PLACE DRAING BROWN LIQUID STOOL. REPOSITIONED FLEXI SEAL. LUNA CATH PATENT DRAINING DARK YELLOW URINE SMALL AMT. TRIALYSIS CATH TO LEFT IJ CLAMPED. DRSG INTACT. IV 20G TO RIGHT FOREARM WITH NS AT 10 ML/HR. PRECEDEX ON STAND BY. IV 20G TO LEFT FOREARM WITH HEPARIN AT 15 UNITS/KG/HR. TERE MANE ON. ORAL CARE DONE.
--- NOTE | 2024-05-14 20:50 | NUR ---
AGITATION/CONFUSION GIVING PT HIS HS MEDS VIA DOBHOFF. PT BECAME AGITATED AND STARTED GRABBING AT THIS NURSE WITH AGRESSION. CALLED FOR ASSIST. PT RESTARTED ON PRECEDEX AT 0.2 MCG/KG/HR AND THEN INCREASED TO 0.6 MCQ/KG/HR. CHARGE NURSE AT BEDSIDE TALKING WITH PT. PT VERY CONFUSED AND ANXIOUS.
--- NOTE | 2024-05-14 22:53 | NUR ---
RT REMOVED BIPAP. PT ON ROOMAIR. PT AGITATED AND CONFUSED. WANTS THE POLICE, AN MAGNET MAKER AND A SECOND DOCTOR TO SEE HIM. PT ON PRECEDEX AT 0.6 MCQ/KG/HR. SITTING UP IN BED.
[2024-05-15] VITALS (48 sets, daily range): BP systolic 87–176; BP diastolic 44–94
--- NOTE | 2024-05-15 01:40 | NUR ---
PT REQUESTED BIPAP BACK ON. BIPAP 14/ RATE 14 FIO2 30%
[2024-05-15 02:30] LABS: Hematocrit 28.1 % (37.0-53.0)
[2024-05-15 02:45] LABS: Albumin, Blood 2.8 g/dL (3.4-5.0); Anion Gap 8 mmol/L (3-11); Blood Urea Nitrogen 37 mg/dL (8-24); Bun/Creatinine Ratio 14.9 (12.0-20.0); CO2, Blood 31 mmol/L (21-32); Calcium, Blood 8.4 mg/dL (8.5-10.1); Chloride, Blood 109 mmol/L (98-108); Creatinine, Blood 2.48 mg/dL (0.60-1.20); Glomerular Filtration Rate 30 (60-); Glucose, Blood 159 mg/dL (70-99); Magnesium, Blood 1.9 mg/dL (1.6-2.4); Phosphorus, Blood 2.4 mg/dL (2.5-4.9); Potassium, Blood 3.3 mmol/L (3.5-5.5); Sodium, Blood 145 mmol/L (136-145)
[2024-05-15] MEDS ORDERED: Clarify Drug Order XX ONE (03:10)
--- NOTE | 2024-05-15 03:48 | NUR ---
REASSESS PT WITH INCREASED RESP RATE. SPO2 94%. UNABLE TO TOLERATE BIPAP AT THIS TIME. PT ASKING FOR,"THAT BLACK MASK" EXPLAINED THAT WHAT HE IS TALKING ABOUT DOES NOT GIVEN O2. RT SETTING UP AIRVO
--- NOTE | 2024-05-15 04:21 | NUR ---
PT PULLED OUT DOBHOFF. TALKED WITH CHARGE NURSE REGARDING REPLACEMENT OF DOBHOFF. PT TO HAVE SPEECH EVAL TODAY FOR POSSIBLE DIET. HOLD DOBHOFF PLACEMENT UNTIL AFTER SPEECH EVAL
--- NOTE | 2024-05-15 04:25 | NUR ---
PT BACK ON BIPAP / RATE 14 FIO2 30%
--- NOTE | 2024-05-15 05:54 | NUR ---
SHIFT SUMMARY PT RESTING QUIELTY AT THIS TIME WITH BIPAP ON. AWAKE MOST OF THE NIGHT. PT WAS A&O X3 AT START OF NIGHT, BUT APPROXIMATELY 2100 PT BECAME CONFUSED AND AGITATED. STARTED SAYING THAT,"YOU ARE TRYING TO KILL ME". PT VERY IRRITABLE AND NONTRUSTING OF CARE. RESTARTED PRECEDEX AND TITRATED UP TO 0.8 MCQ/KG/HR DURING THE NIGHT. PT ALSO MED WITH IV HALDOL 2MG. PT HAS USED BIPAP OFF AND ON DURING THE NIGHT FOR SOB AND TACHYPNEA WITH IMPROVEMENT. HEART RATE HAS DECREASED FROM 100-120'S AT START OF NIGHT TO 60-70'S NOW. HAS HAD ELEVATED BP WITH AGITATION. PT PULLED OUT DOBHOFF WHILE BLOWING NOSE. DID NOT REPLACE DOBHOFF AT THIS TIME, PT TO HAVE SPEECH EVAL THIS AM. POOR URINE OUTPUT 122 ML DURING THE NIGHT. 150 ML LIQUID STOOL OUT DURING NIHGT. PT MOVED FREQUENTLY IN BED. HEPARIN INCREASED TO 17 UNITS/KG/HR. NEXT ANTI XA DRAW AT 0830. REPORT TO ON COMING NURSE
[2024-05-15] MEDS ORDERED: Potassium Chl 10MEQ/Water100ML 100 ML IV ONE (06:40)
[2024-05-15 07:11] LABS: HEPATITIS B SURFACE ANTIBODY <3.10 IU/L
[2024-05-15] MEDS ORDERED: Potassium Phosphate Dibasic 10 MM in Dextrose 5% 250 ML IV ONE (08:00)
[2024-05-15 09:04] LABS: TACROLIMUS BY HPLC-MS/MS 6.5 ng/mL
[2024-05-15] MEDS ORDERED: Dose Adjust by Pharmacy XX STA (09:07)
[2024-05-15] MEDS ORDERED: Anticoagulant Sod Citrate Soln 3 ML SYR INJ PRN (09:40)
[2024-05-15 09:52] LABS: HEPATITIS A ANTIBODY, IGM Negative (Negative); HEPATITIS B CORE ANTIBODY, IGM Negative (Negative); HEPATITIS B SURFACE ANTIGEN Negative (Negative); HEPATITIS C AB CIA INTERP Negative (Negative); HEPATITIS C ANTIBODY CIA INDEX <0.02 IV
[2024-05-15 14:21] LABS: HAPTOGLOBIN 135 mg/dL (30-200)
[2024-05-15] MEDS ORDERED: LORazepam 2 MG/ML 1ML Injection IV PRN (17:15)
--- NOTE | 2024-05-15 18:31 | NUR ---
Summary. Pt much improved this shift. Precedediony PERSAUD'd. Pt went to dialysis at 0950, back just after noon, tolerated well. Cleared by speech therapy, worked with physical therapy. Up to chair this afternoon. Off bipap all shift. No acute events, VS stable. See chart for further details.
[2024-05-16] VITALS (11 sets, daily range): BP systolic 125–174; BP diastolic 69–105
[2024-05-16] MEDS ORDERED: Melatonin 3 MG Tab PO PRN (02:45)
[2024-05-16 03:42] LABS: Hematocrit 30.6 % (37.0-53.0); Hemoglobin 9.7 g/dL (13.5-17.5)
[2024-05-16 03:58] LABS: Albumin, Blood 2.8 g/dL (3.4-5.0); Anion Gap 10 mmol/L (3-11); Blood Urea Nitrogen 27 mg/dL (8-24); Bun/Creatinine Ratio 15.3 (12.0-20.0); CO2, Blood 29 mmol/L (21-32); Calcium, Blood 8.6 mg/dL (8.5-10.1); Chloride, Blood 104 mmol/L (98-108); Creatinine, Blood 1.76 mg/dL (0.60-1.20); Glomerular Filtration Rate 45 (60-); Glucose, Blood 113 mg/dL (70-99); Magnesium, Blood 1.9 mg/dL (1.6-2.4); Phosphorus, Blood 3.1 mg/dL (2.5-4.9); Potassium, Blood 3.3 mmol/L (3.5-5.5); Sodium, Blood 140 mmol/L (136-145)
[2024-05-16] MEDS ORDERED: Potassium Chloride 20 MEQ TabCR PO ONE (04:15)
[2024-05-16] MEDS ORDERED: Clarify Drug Order XX ONE (04:55)
[2024-05-16] MEDS ORDERED: Cosyntropin 0.25 MG / ML 1ML Vial IV ONE ×2 (06:00→07:30)
[2024-05-16] MEDS ORDERED: Potassium Chl 20MEQ/Water100ML 100 ML IV STA (06:21)
--- NOTE | 2024-05-16 06:43 | NUR ---
SHIFT SUMMARY PATIENT HAD A HARD TIME SLEEPING THROUGH SHIFT. GAVE ATIVAN AND MELATONIN PER EMAR HELPED WITH PATIENT'S ANXIETY. A&O X3 PATIENT COOPERATES WITH CARE. LUNGS CLEAR ON 2L OF O2 VIA NC BUT AROUND 0400 PATIENT WANTED TO GO ON BIPAP. SBP 130'S, HR IN THE 90-100'S. RETAL TUBE DRAINING TO GRAVITY. HAD LUNA YELOW IN COLOR AND DRAINING TO GRAVITY. PATIENT USES CALL LIGHT APPROPRIATELY AND CALL LIGHT CALL WITHIN REACH.
[2024-05-16] MEDS ORDERED: Bumetanide 0.25 MG/ML 10ML Vial IV ONE (08:55)
[2024-05-16] MEDS ORDERED: Zolpidem Tartrate 5 MG Tab PO PRN (10:15)
[2024-05-16] MEDS ORDERED: Rivaroxaban 10 MG Tab PO SCH (11:00)
--- NOTE | 2024-05-16 18:07 | NUR ---
ASSUMPTION OF CARE/SHIFT SUMMARY REPORT RECIEVED FROM RECRUITMENT MANAGER JAMISON. PT ARRIVED TO PCU AROUND 1800. LIFT USED TO TRANSFER PT FROM ICU BED TO PCU BED. READJUSTED PT, LEFT HIP FLOATING. PT A&O, HE IS CALM, COOPERATIVE TO CARE. HR IN THE 100'S, SINUS RHYTHM, DENIES CP/PRESSURE, NUMB/TINGLING, SBP IN THE 140'S. L/S CLEAR T/O, PT ON RA, O2 >92%, DENIES SOB. PT DENIES ANY PAIN AT THIS TIME. MILD ABD DISTENTION, PT DENIES PAIN/TENDER, +BS. PT WITH LEFT IJ CATH, DRESSING C/D/I. LUNA CATH IN PLACE DRAINING TO GRAVITY. RECTAL TUBE IN PLACE, BROWN STOOL NOTED. WILL CONTINUE TO MONITOR PT AND REPORT TO PRINTER OPERATOR RN.
--- NOTE | 2024-05-16 18:10 | NUR ---
Summary. PT transferred to PCU 18, report given to RN assuming care. Pt alert and oriented. Up to chair this shift, mentation improved. Pt struggling to eat hospital food, does not like it. brought dinner from outside hospital this evening. No acute events this shift. See chart for details. All personal belongings sent with pt to new room.
[2024-05-16] MEDS ORDERED: Protein Supplement 30 ML UD PO SCH (21:00)
[2024-05-17] VITALS (7 sets, daily range): BP systolic 124–159; BP diastolic 64–86
[2024-05-17 04:11] LABS: Hematocrit 28.2 % (37.0-53.0); Hemoglobin 8.9 g/dL (13.5-17.5)
[2024-05-17 04:34] LABS: Albumin, Blood 2.5 g/dL (3.4-5.0); Anion Gap 11 mmol/L (3-11); Blood Urea Nitrogen 30 mg/dL (8-24); CO2, Blood 29 mmol/L (21-32); Calcium, Blood 8.6 mg/dL (8.5-10.1); Chloride, Blood 106 mmol/L (98-108); Creatinine, Blood 1.76 mg/dL (0.60-1.20); Glomerular Filtration Rate 45 (60-); Glucose, Blood 117 mg/dL (70-99); Magnesium, Blood 1.7 mg/dL (1.6-2.4); Phosphorus, Blood 3.5 mg/dL (2.5-4.9); Potassium, Blood 3.6 mmol/L (3.5-5.5); Sodium, Blood 142 mmol/L (136-145)
--- NOTE | 2024-05-17 05:59 | NUR ---
SHIFT SUMMERY PT IS ALERT AND ORIENTED X3, HOWEVER HE REQUIRES FREQUENT REDIRECTION AND RETEACHING REGARDING HIS BIPAP USAGE. PT WILL DISPLAY AN INCREASE WOB AFTER BEING PLACED ON NC, I WILL EDUCATE ON WHY THIS IN HAPPENING AND PLACE PT BACK ON BIPAP. THIS HAPPENED MULTIPLE TIMES. PT VS HAVE BEEN WNL. DESPITE SOB, PT OXYGEN SAT REMAINED >92%. PT HAS BEEN AFEBRILE. LUNA CATH AND RECTAL TUBE ARE BOTH INTACT AND DRAINING TO GRAVITY.
[2024-05-17 08:18] LABS: HBV CORE ANTIBODIES,TOTAL Negative (Negative)
--- NOTE | 2024-05-17 17:37 | NUR ---
SHIFT SUMMARY: PT HAS BEEN ALERT, SHORT INTERMITTENT NAPS, ORIENTED x3, SOME CONFUSION THIS AM THAT SEEMED TO CLEAR T/OUT THE AFTERNOON. PT FREQUENTLY REQUESTS TO CHANGE BETWEEN NC AND BIPAP T/OUT DAY, O2 SATS >93%. SR/ST ON MONITOR, RATE 90s-100s. INDWELLING LUNA PATENT, DRAINING DARK YELLOW COLORED URINE TO GRAVITY, APPROX 250 ML OUTPUT THIS SHIFT, NO DIALYSIS TODAY. FLEXI SEAL CONTINUES IN PLACE, DRAINING SOFT/LOOSE STOOL TO GRAVITY. PT UP TO RECLINER TODAY VIA LIFT, TOLERATED WELL AND WAS ABLE TO VERBALIZE NEED TO GO BACK TO BED. PT REPOSITIONED Q2H. AT THIS TIME, PT IS BACK IN BED W/CALL LIGHT IN REACH.
--- NOTE | 2024-05-17 19:00 | NUR ---
ASSUMPTION OF CARE: RECEIVED REPORT FROM JOSE PEREIRA AT 1900. PT ALERT AND ORIENTED X4. ANSWERS QUESTIONS AND FOLLOWS DIRECTION. COOPERATIVE WITH CARE. PT BACK AND FORTH BETWEEN BIPAP AND 1.5L NC. LUNGS CLEAR/COARSE. SPO2 >92%. DENIES SOB. SEE RT FLOWSHEET FOR SETTINGS. PHOTOCOPYING EQUIPMENT MECHANIC IN PLACE, SR WITH PAC'S. HR 90'S. SBP 140'S. DENIES CP/PRESSURE. RECTAL TUBE IN PLACE, DRAINING BROWN LIQUID TO GRAVITY. LUNA IN PLACE, DRAINING MINIMAL AMOUNT OF DARK URINE TO GRAVITY. TOLERATING PO INTAKE. ENDORSES GENERALIZED PAIN T/O, MEDICATED PER EMAR. SHIFTING IN BED WITH HELP. PIV'S INTACT AND SALINE LOCKED. BED LOW AND LOCKED, CALL LIGHT IN REACH.
[2024-05-18 04:27] VITALS: BP 112/66
[2024-05-18 04:40] LABS: Hemoglobin 8.4 g/dL (13.5-17.5); Mean Corpuscular HGB 32.9 pg (26.0-34.0); Mean Corpuscular HGB Conc 31.1 g/dL (31.5-36.5); Mean Corpuscular Volume 106 fL (80-100); Mean Platelet Volume 9.8 fL (9.1-12.4); Platelet Count 139 K/mm3 (150-400); RDW Coefficient Variation 14.3 % (11.7-14.2); RDW Standard Deviation 55.5 fL (35.1-46.3); Red Blood Cell Count 2.55 M/mm3 (4.30-5.90); White Blood Cell Count 4.33 K/mm3 (4.00-11.30)
[2024-05-18 04:56] LABS: Albumin, Blood 2.4 g/dL (3.4-5.0); Anion Gap 8 mmol/L (3-11); Blood Urea Nitrogen 32 mg/dL (8-24); Bun/Creatinine Ratio 19.5 (12.0-20.0); CO2, Blood 30 mmol/L (21-32); Calcium, Blood 8.5 mg/dL (8.5-10.1); Chloride, Blood 108 mmol/L (98-108); Creatinine, Blood 1.64 mg/dL (0.60-1.20); Glomerular Filtration Rate 48 (60-); Glucose, Blood 116 mg/dL (70-99); Phosphorus, Blood 3.5 mg/dL (2.5-4.9); Potassium, Blood 3.4 mmol/L (3.5-5.5); Sodium, Blood 143 mmol/L (136-145)
[2024-05-18] MEDS ORDERED: Potassium Chloride 10 Meq Tablet SA PO ONE ×2 (05:20→08:40)
--- NOTE | 2024-05-18 05:26 | NUR ---
SHIFT SUMMARY: NO ACUTE CHANGES OVERNIGHT. REMAINS A&O X4. COOPERATIVE WITH CARE. PT BACK AND FORTH BETWEEN BIPAP AND NC. SPO2 >94%> DENIES SOB. REMAINS IN SR WITH HR 70-90'S. SBP 120'S-150'S. DENIES CP/PRESSURE. NO NEW C/O PAIN. LUNA DRAINING TO GRAVITY. RECTAL TUBE DRAINING TO GRAVITY. TRIALYSIS CATH TO LIJ, PATENT. PIVS PATENT AND SALINE LOCKED. TOLERATING PO INTAKE. BED LOW AND LOCKED, CALL LIGHT IN REACH.
[2024-05-18 07:48] VITALS: BP 133/64
[2024-05-18 12:31] VITALS: BP 132/61
[2024-05-18 14:16] LABS: GBM, IGG MULTIPLEX BEAD ASSAY 0 AU/mL (0-19); MYELOPEROXIDASE (MPO) AB,IGG 0 AU/mL (0-19); SERINE PROTEINASE 3 PR3 AB,IGG 0 AU/mL (0-19)
[2024-05-18 16:17] VITALS: BP 130/68
--- NOTE | 2024-05-18 16:38 | NUR ---
SHIFT SUMMARY: PT HAS BEEN A&Ox4, COOPERATIVE W/CARE, ABLE TO MAKE NEEDS KNOWN. PT REPORTS THAT HE FEELS LIKE HE SLEPT BETTER LAST NIGHT, TOLERATED BIPAP FOR LONGER PERIOD OF TIME. T/OUT THE DAY PT CONTINUES TO TRADE BETWEEN BIPAP AND NC AT 1 L/MIN, O2 SATS >95%. SR W/PACs ON MONITOR W/RATE 90s-100s, PT DENIES CHEST PAIN. NO DIALYSIS TODAY. LIJ TRIALYSIS CATH PATENT. PT W/MINIMAL PO INTAKE, WILL EAT SMALL AMOUNT OF FOOD BROUGHT IN BY FAMILY. RECTAL TUBE CONTINUES PATENT, DRAINING BROWN LIQUID TO GRAVITY. LUNA CONTINUES PATENT, DRAINING DARK YELLOW COLORED LIQUID TO GRAVITY. PT PARTICIPATED W/PT AND OT TODAY, SPENDS SOME TIME IN RECLINER VIA LIFT. AT THIS TIME, PT IS BACK IN BED W/SPOUSE AT BEDSIDE AND CALL LIGHT IN REACH.
[2024-05-18 18:36] LABS: ANTINUCLEAR AB (ANA),HEP-2,IGG <1:80 (<1:80)
[2024-05-18 19:44] VITALS: BP 150/83
[2024-05-19] VITALS (7 sets, daily range): BP systolic 124–145; BP diastolic 62–73
[2024-05-19 04:25] LABS: Hematocrit 26.8 % (37.0-53.0); Hemoglobin 8.4 g/dL (13.5-17.5)
--- NOTE | 2024-05-19 04:28 | NUR ---
SHIFT SUMMARY THIS RN ASSUMED CARE OF PATIENT AT 1900. PT A&O X4. ANSWERING QUESTIONS APPROPRIATELY. SOFT SPOKEN AT TIMES. CALLING APPROPIATELY. WEARING BIPAP WHILE SLEEPING AT 14/6 25% FIO2, ON 1-2L NC OTHERWISE. BP STABLE. SR/ST WITH PAC'S. AFEBRILE. REPOSITIONING Q2HRS AND PRN. PT ANXIOUS AT TIMES. MEDICATED PER EMAR FOR SLEEP/PAIN. LINEN CHANGED. LUNA CATHETER PATENT AND DRAINING DARK YELLOW URINE. RECTAL TUBE IN PLACE DRAINING DARK BROWN/BLACK LIQUID BM. BED IN LOWEST POSITION AND CALL LIGHT WITHIN REACH. THIS RN WILL REPORT TO ONCOMING DAYSHIFT RN.
[2024-05-19 04:50] LABS: Albumin, Blood 2.4 g/dL (3.4-5.0); Anion Gap 8 mmol/L (3-11); Blood Urea Nitrogen 38 mg/dL (8-24); Bun/Creatinine Ratio 23.3 (12.0-20.0); CO2, Blood 29 mmol/L (21-32); Calcium, Blood 8.7 mg/dL (8.5-10.1); Chloride, Blood 110 mmol/L (98-108); Creatinine, Blood 1.63 mg/dL (0.60-1.20); Glomerular Filtration Rate 49 (60-); Glucose, Blood 109 mg/dL (70-99); Magnesium, Blood 1.9 mg/dL (1.6-2.4); Phosphorus, Blood 3.5 mg/dL (2.5-4.9); Potassium, Blood 3.6 mmol/L (3.5-5.5); Sodium, Blood 143 mmol/L (136-145)
--- NOTE | 2024-05-19 15:17 | NUR ---
ASSUMPTION OF CARE PT A&O X4, ANXIOUS AT TIMES, COOPERATIVE TO CARE. SINUS RHYTHM IN THE 90'S, DENIES CP/PRESSURE, NUMB/TINGLING, SBP STABLE. O2 >92% ON 1L VIA NC, BIPAP MACHINE PRN. +BS, PT WITH RECTAL TUBE, BROWN LIQUID STOOL IN BAG. LUNA CATH IN PLACE, DRAINING TO GRAVITY, DARK YELLOW URINE IN BAG. PT WITH LEFT IJ CATHETER FOR DIALYSIS. PT DENIES QUESTIONS OR CONCERNS AT THIS TIME. PROVIDER TO BEDSIDE TO DISCUSS PLAN OF CARE. PT EXPECTED TO STAY A FEW MORE DAYS FOR OBSERVATION. WILL CONTINUE TO MONITOR.
--- NOTE | 2024-05-19 18:28 | NUR ---
SHIFT SUMMARY PT A&O X4, ANXIOUS AT TIMES, COOPERATIVE TO CARE. SINUS RHYTHM, 90'S, DENIES CP/PRESSURE, NUMB/TINGLING. PT ALTERNATING BETWEEN BIPAP AND NC, O2 >92%. RECTAL TUBE IN PLACE, BROWN, LIQUID STOOLS IN BAG, BAG DRAINE THIS EVENING WITH OUTPUT OF 200. LUNA IN PLACE DRAINING TO GRAVITY, DARK YELLOW URINE, WITH AN OUTPUT OF 300MLS THIS SHIFT. NO ACUTE CHANGES T/O SHIFT. PILLOWS PLACED UNDER BOTH HIPS AND BOTH ARMS. PT DENIES ANY QUESTIONS AT THIS TIME, WILL CONTINUE TO MONITOR AND REPORT TO LUMBER YARD WORKER RN.
--- NOTE | 2024-05-19 20:47 | NUR ---
PATIENT UPDATE/ASSUMPTION OF CARE THIS RN ASSUMED CARE OF PATIENT AT 1900. VSS AT SHIFT CHANGE. NEURO INTACT. AT APPROXIMATELY 2030 PT BEGAN TO DESAT TO THE MID 80'S WHILE ON NC, PT PLACED ON BIPAP / WITH CONTINUED DESATTING. THIS RN PLACED PT ON 100% FIO2 WHILE PT WAS SITTING UP AT 90 DEGREES. PT RECOVERED SOON AFTER WITH RT AT BEDSIDE. LUNG SOUNDS DIMINISHED T/O. CALL PLACED TO MD APONTE REGARDING EVENT. SPOKE TO MD ABOUT PREVIOUS PROBLEMS WITH PLEURAL EFFUSIONS AND NEEDING THORACENTESIS DONE PREVIOUSLY DURING THIS ADMISSION. MD APONTE WITH ORDER FOR CXR NOW. ORDER PLACED.
--- NOTE | 2024-05-19 21:17 | NUR ---
PATIENT UPDATE MD APONTE TO NURSES STATION TO REVIEW CHEST XRAY AND PREVIOUS CXR'S. MD APONTE WITH NO FURTHER ORDERS AT THIS TIME. PT STATES HE FEELS LIKE HE IS BREATHING BETTER AND REPORTS HAVING ANXIETY/PANIC DURING EVENT. PT REMAINS ON BIPAP WITH SPO2 >92%.
[2024-05-20 04:12] VITALS: BP 136/73
[2024-05-20 04:43] LABS: Hematocrit 26.4 % (37.0-53.0); Hemoglobin 8.1 g/dL (13.5-17.5)
[2024-05-20 04:58] LABS: Albumin, Blood 2.4 g/dL (3.4-5.0); Anion Gap 8 mmol/L (3-11); Blood Urea Nitrogen 42 mg/dL (8-24); Bun/Creatinine Ratio 23.2 (12.0-20.0); CO2, Blood 29 mmol/L (21-32); Calcium, Blood 8.8 mg/dL (8.5-10.1); Chloride, Blood 111 mmol/L (98-108); Creatinine, Blood 1.81 mg/dL (0.60-1.20); Glomerular Filtration Rate 43 (60-); Glucose, Blood 104 mg/dL (70-99); Magnesium, Blood 1.9 mg/dL (1.6-2.4); Phosphorus, Blood 3.4 mg/dL (2.5-4.9); Potassium, Blood 3.6 mmol/L (3.5-5.5); Sodium, Blood 144 mmol/L (136-145)
--- NOTE | 2024-05-20 05:01 | NUR ---
SHIFT SUMMARY SEE PREVIOUS NOTES. PT APPEARED TO HAVE MORE SOB DURING THIS NOC SHIFT COMPARED TO PREVIOUS NOC SHIFT WITH THIS RN. PT EASILY DESATTING WHEN BIPAP REMOVED. PT NEEDING 2-3L VIA NC INSTEAD OF 0-1L HE DID PREVIOUS SHIFT. PT REPORTS INCREASED SOB DURING THE BEGINNING OF THE SHIFT. PT SATTING IN THE LOW 80'S ON RA. INCREASED WOB NOTED AT TIMES. PT WEARING BIPAP FOR THE MAJORITY OF THIS SHIFT AT 14/6 AND 30% FIO2. OTHER VITALS STABLE. NO EVENTS NOTED ON TELE DURING THIS SHIFT. DARK BROWN LIQUID STOOL IN RECTAL TUBE. LUNA CATHETER PATENT AND DRAINING SMALL AMOUNT OF DARK YELLOW URINE. REPOSITIONING Q2HRS. NEURO INTACT. PT CALLING APPROPRIATELY. BED IN LOWEST POSITION AND CALL LIGHT WITHIN REACH. THIS RN WILL REPORT TO ONCOMING DAYSHIFT RN.
[2024-05-20 07:27] VITALS: BP 130/71
[2024-05-20 13:04] VITALS: BP 116/99
[2024-05-20] MEDS ORDERED: Darbepoetin Alfa In Albumn Sol 40 MCG/0.4 ML SC SCH (16:00)
[2024-05-20] MEDS ORDERED: Furosemide 10 MG/ML 4ML Vial IV ONE (17:10)
[2024-05-20 17:29] VITALS: BP 146/75
--- NOTE | 2024-05-20 18:08 | NUR ---
SHIFT SUMMARY PT A&O X4, ANXIOUS AT TIMES, COOPERATIVE TO CARE. HR IN THE 90'S, SINUS RHYTHM, DENIES CP/PRESSURE, NUMB/TINGLING, SBP STABLE. PT ALTERNATING BETWEEN BIPAP AND NC. NC AT 2-3L, 02 >93% ON RA. PT DID DESAT TO THE 80'S TODAY WHEN SWITCHING FROM BIPAP TO NC BUT RECOVERED QUICKLY. LUNA CATH IN PLACE DRAINING DARK YELLOW URINE TO GRAVITY, PT STILL HAVING MINIMAL OUTPUT. WHEN GOING TO REPOSTION AND CHANGE THE PT RECTAL TUBE WAS NOTED TO HAVE BEEN OUT. RECTAL TUBE WAS LEFT OUT, PT STOOLS HAVE BEEN A BIOMEDICAL EQUIPMENT TECH BROWN AND MORE FORMED FROM PREVIOUS DAY, PT IS ABLE TO SENSE WHEN HE NEEDS TO HAVE A BM. PER PTS , NEPRHOLOGY CALLED AND HAD A PHONE VISIT WITH THE PT. HOLDING OFF DIALYSIS AND WILL RECHECK IN THE AM, LASIX GIVEN INSTEAD. PT DENIES QUESTIONS OR CONCERNS AT THIS TIME. WILL MONITOR PT AND REPORT TO HIDE BUYER RN.
[2024-05-20 19:54] VITALS: BP 141/73
[2024-05-20 23:15] VITALS: BP 117/58
[2024-05-21 05:05] LABS: Hemoglobin 8.2 g/dL (13.5-17.5)
[2024-05-21 05:06] VITALS: BP 123/71
--- NOTE | 2024-05-21 05:22 | NUR ---
SHIFT SUMMARY THIS RN ASSUMED CARE OF PATIENT AT 1900. PT A&O X4. ABLE TO MAKE NEEDS KNOWN. PT REPORTED TO GET GOOD SLEEP DURING THIS SHIFT. ON BIPAP FOR THE MAJORITY OF THE SHIFT. ONLY ON 2L VIA NC FOR SHORT BREAKS FOR WATER. BIPAP 14/8 WITH 30% FIO2. TACHYPNEA NOTED WITH RR 20-28. DIMINISHED LS NOTED TO BE WORSE ON RIGHT SIDE COMPARED TO LEFT SIDE. PT ASSISTING WITH REPOSITIONING. NO BM DURING THIS SHIFT. LUNA CATHETER PATENT AND DRAINING TO GRAVITY. VSS. BED IN LOWEST POSITION AND CALL LIGHT WITHIN REACH. THIS RN WILL REPORT TO ONCOMING DAYSHIFT RN.
[2024-05-21 05:42] LABS: Albumin, Blood 2.3 g/dL (3.4-5.0); Anion Gap 8 mmol/L (3-11); Blood Urea Nitrogen 52 mg/dL (8-24); Bun/Creatinine Ratio 25.2 (12.0-20.0); CO2, Blood 28 mmol/L (21-32); Calcium, Blood 8.5 mg/dL (8.5-10.1); Chloride, Blood 111 mmol/L (98-108); Creatinine, Blood 2.06 mg/dL (0.60-1.20); Glomerular Filtration Rate 37 (60-); Glucose, Blood 93 mg/dL (70-99); Magnesium, Blood 1.9 mg/dL (1.6-2.4); Phosphorus, Blood 3.8 mg/dL (2.5-4.9); Potassium, Blood 3.4 mmol/L (3.5-5.5); Sodium, Blood 144 mmol/L (136-145)
[2024-05-21] MEDS ORDERED: Potassium Chloride 20 MEQ TabCR PO ONE (06:35)
[2024-05-21 07:45] VITALS: BP 127/63
[2024-05-21] MEDS ORDERED: Rivaroxaban 10 MG Tab PO SCH (09:00)
[2024-05-21] MEDS ORDERED: Furosemide 20 MG Tab PO SCH (09:00)
[2024-05-21 10:33] LABS: Mean Platelet Volume 10.5 fL (9.1-12.4); Platelet Count 169 K/mm3 (150-400)
[2024-05-21 10:58] LABS: International Normalized Ratio 1.19; Prothrombin Time Results 12.6 Sec (9.7-11.5)
[2024-05-21 13:06] VITALS: BP 128/56
[2024-05-21 15:36] VITALS: BP 119/77
--- NOTE | 2024-05-21 18:19 | NUR ---
SHIFT SUMMARY PT A&O X4, ANXIOUS AT TIMES, COOPERATIVE TO CARE. SINUS RHYTHM 80'S, DENIES CP/PRESSURE, NUMB/TINGLING, SBP STABLE. O2 >92%, ALTERNATING BETWEEN 2L VIA NC AND BIPAP. O2 DECREASES TO THE HIGH 80'S LOW 90'S WHEN REMOVING BIPAP TO ALTERNATE TO NC BUT QUICKLY RECOVERS. +BS, FIRM, DENIES N/V. PT WITH DECREASED APPETITE, PER PT AND HE HAS ATE MORE TODAY THEN HE HAS BEEN WITH FOOD THE HAS BROUGHT IN. HE HAS A BREIF IN PLACE, JELLY LIKE BROWN STOOLS NOTED IN BREIF, PT CALLS AFTER HE HAS HAD A BM. LUNA CATH IN PLACE, DRAINING DARK YELLOW URINE. STAT LOCK CHANGED TODAY. PT/OT WORKED WITH PT TODAY, PT TRANSFERED FROM BED TO RECLINER WITH 2 PERSON ASSIST. NO ACUTE HANGES T/O SHIFT. PROVIDER TO BEDSIDE TO DISCUSS PLAN OF CARE. US COMPLETED THIS AFTERNOON FOR POSSIBLE THORACENTESIS TOMMORROW. HOLDING BLOOD THINNERS UNTIL AFTER PROCEDURE. ENDOCRINOLOGY CONSULT PENDING, IF THEY DO NO SHOW UP TONIGHT REACH OUT TO PROVIDER TO CALL ENDOCRINLOGY. WILL CONTINUE TO MONITR PT AND REPORT TO DAMAGE APPRAISER RN.
[2024-05-21 18:47] LABS: ALBUMIN %,URINE 46.5 %; ALPHA-2 %,URINE 8.9 %; BETA GLOBULIN %,URINE 32.2 %; GAMMA GLOBULIN %,URINE 3.4 %; HOURS COLLECTED Not Provided hr; TOTAL VOLUME Not Provided mL
--- NOTE | 2024-05-21 18:51 | NUR ---
PT LEFT FOR YANCI/CARDIOVERSION. PT RETURNED TO PCU VIA WHEELCHAIR. PT TRANSFERED FROM WHEELCHAIR TO BED. BP SOFT IN THE 90'S, SEQUENCE VITALS SET UP. HR IN THE 70'S, SINUS RHYTHM. O2 >92% ON 3L VIA NC. WILL CONTINUE MONITORING PTS VITALS.
[2024-05-21 20:22] VITALS: BP 136/69
[2024-05-22] VITALS (7 sets, daily range): BP systolic 114–134; BP diastolic 63–73
--- NOTE | 2024-05-22 05:24 | NUR ---
SHIFT SUMMARY ASSUMED CARE OF PT AT 1900. PT IS A/OX4. HEART SOUNDS REGULAR. LUNG SOUNDS CLEAR. PT WORE BIPAP A MAJORITY OF THE NOC. PT STATES THAT IT HELPS HIM TO BREATH BETTER. PT TURNED Q2 IN BED. LUNA DRAINING CLARENCE URINE. PT HAD NO NEW COMPLAINTS. ENDOCRINOLOGT SAW PT AT START OF SHIFT. CALLED TO UPDATE.
[2024-05-22 05:53] LABS: Hematocrit 27.9 % (37.0-53.0); Hemoglobin 8.8 g/dL (13.5-17.5); Mean Corpuscular HGB 32.7 pg (26.0-34.0); Mean Corpuscular HGB Conc 31.5 g/dL (31.5-36.5); Mean Corpuscular Volume 104 fL (80-100); Mean Platelet Volume 10.5 fL (9.1-12.4); Platelet Count 171 K/mm3 (150-400); RDW Coefficient Variation 14.2 % (11.7-14.2); RDW Standard Deviation 54.1 fL (35.1-46.3); Red Blood Cell Count 2.69 M/mm3 (4.30-5.90); White Blood Cell Count 4.39 K/mm3 (4.00-11.30)
[2024-05-22 06:18] LABS: Albumin, Blood 2.4 g/dL (3.4-5.0); Anion Gap 9 mmol/L (3-11); Blood Urea Nitrogen 54 mg/dL (8-24); Bun/Creatinine Ratio 25.5 (12.0-20.0); CO2, Blood 27 mmol/L (21-32); Calcium, Blood 8.4 mg/dL (8.5-10.1); Chloride, Blood 111 mmol/L (98-108); Creatinine, Blood 2.12 mg/dL (0.60-1.20); Glomerular Filtration Rate 35 (60-); Glucose, Blood 103 mg/dL (70-99); Magnesium, Blood 1.8 mg/dL (1.6-2.4); Potassium, Blood 3.5 mmol/L (3.5-5.5); Sodium, Blood 143 mmol/L (136-145)
--- NOTE | 2024-05-22 17:31 | NUR ---
SHIFT SUMMARY PT A&Ox4, CALLS AND COMMUNICATES NEEDS APPROPRIATELY. BP STABLE, SINUS 80-90'S, DENIES CP/PRESSURE. SpO2> 92% RA, WEARING 2L VIA NC AND BIPAP PRN FOR COMFORT. REPORTS SOB WHEN LYING FLAT, STATES THAT THIS HAS MILDLY IMPORVED POST THORACENTESIS. LUNA CATH REMOVED WITH SHIFT, NO VOID SINCE BUT <300mls IN BLADDER. PT WITH MULTIPLE INCONTINENT LOOSE, ORANGE/BROWN STOOLS. Q2 TURNS PROVIDED. NO C/O PAIN. NO OTHER EVENTS, WILL REPORT TO ONCOMING RN.
[2024-05-23 00:30] VITALS: BP 117/86
--- NOTE | 2024-05-23 01:06 | NUR ---
NOTIFIED DR. RAY REGARDING PT WITH TEMP OF 100.8. PER PROVIDER BC X2 AND GIVE TYLENOL
[2024-05-23 01:41] LABS: BASOPHILS ABSOLUTE AUTO 0.02 K/mm3 (0.00-0.23); BASOPHILS PERCENT AUTO 0 % (0-2); EOSINOPHILS ABSOLUTE AUTO 0.13 K/mm3 (0.00-0.68); EOSINOPHILS PERCENT AUTO 3 % (0-6); Hematocrit 29.5 % (37.0-53.0); Hemoglobin 9.3 g/dL (13.5-17.5); IMMATURE GRAN ABSOLUTE AUTO 0.03 K/mm3 (0.00-0.10); IMMATURE GRAN PERCENT AUTO 1 % (0-1); LYMPHOCYTES ABSOLUTE AUTO 1.59 K/mm3 (0.84-5.20); LYMPHOCYTES PERCENT AUTO 35 % (21-46); MONOCYTES ABSOLUTE AUTO 0.72 K/mm3 (0.16-1.47); MONOCYTES PERCENT AUTO 16 % (4-13); Mean Corpuscular HGB 32.9 pg (26.0-34.0); Mean Corpuscular HGB Conc 31.5 g/dL (31.5-36.5); Mean Corpuscular Volume 104 fL (80-100); Mean Platelet Volume 10.1 fL (9.1-12.4); NEUTROPHILS ABSOLUTE AUTO 2.04 K/mm3 (1.96-9.15); NEUTROPHILS PERCENT AUTO 45 % (41-73); Platelet Count 192 K/mm3 (150-400); RDW Standard Deviation 53.3 fL (35.1-46.3); Red Blood Cell Count 2.83 M/mm3 (4.30-5.90); White Blood Cell Count 4.53 K/mm3 (4.00-11.30)
[2024-05-23 01:56] LABS: Albumin, Blood 2.4 g/dL (3.4-5.0); Anion Gap 7 mmol/L (3-11); Blood Urea Nitrogen 58 mg/dL (8-24); Bun/Creatinine Ratio 30.2 (12.0-20.0); CO2, Blood 26 mmol/L (21-32); Calcium, Blood 8.2 mg/dL (8.5-10.1); Chloride, Blood 112 mmol/L (98-108); Creatinine, Blood 1.92 mg/dL (0.60-1.20); Glomerular Filtration Rate 40 (60-); Glucose, Blood 110 mg/dL (70-99); Magnesium, Blood 1.7 mg/dL (1.6-2.4); Phosphorus, Blood 3.4 mg/dL (2.5-4.9); Potassium, Blood 3.4 mmol/L (3.5-5.5); Sodium, Blood 142 mmol/L (136-145)
[2024-05-23 04:06] VITALS: BP 123/68
[2024-05-23] MEDS ORDERED: Potassium Chloride 10 Meq Tablet SA PO ONE (06:20)
[2024-05-23 09:22] VITALS: BP 114/64
[2024-05-23 11:50] VITALS: BP 144/83
[2024-05-23 15:19] VITALS: BP 131/62
--- NOTE | 2024-05-23 17:51 | NUR ---
SHIFT SUMMARY PT A&Ox4, CALLS AND COMMUNICATES NEEDS APPROPRIATELY. BP STABLE, SINUS 80-90'S, DENIES CP/PRESSURE. SpO2> 92% RA, WEARING 1L VIA NC PRN FOR COMFORT. REPORTS SOB WHEN LYING FLAT, STATES ITS MUCH BETTER THAN YESTERDAY. PUREWICK PATENT. PT WITH MULTIPLE INCONTINENT LOOSE, BROWN STOOLS. Q2 TURNS PROVIDED. MANAGED PTS PAIN PER EMAR. NO OTHER EVENTS, WILL REPORT TO ONCOMING RN.
[2024-05-23 20:17] VITALS: BP 135/70
[2024-05-24 03:11] VITALS: BP 137/77
[2024-05-24 04:44] LABS: Hematocrit 28.6 % (37.0-53.0); Hemoglobin 8.8 g/dL (13.5-17.5)
[2024-05-24 05:20] LABS: Albumin, Blood 2.2 g/dL (3.4-5.0); Anion Gap 8 mmol/L (3-11); Blood Urea Nitrogen 59 mg/dL (8-24); Bun/Creatinine Ratio 34.5 (12.0-20.0); CO2, Blood 27 mmol/L (21-32); Calcium, Blood 8.5 mg/dL (8.5-10.1); Chloride, Blood 112 mmol/L (98-108); Creatinine, Blood 1.71 mg/dL (0.60-1.20); Glomerular Filtration Rate 46 (60-); Glucose, Blood 104 mg/dL (70-99); Magnesium, Blood 1.8 mg/dL (1.6-2.4); Phosphorus, Blood 4.1 mg/dL (2.5-4.9); Potassium, Blood 3.6 mmol/L (3.5-5.5); Sodium, Blood 143 mmol/L (136-145)
--- NOTE | 2024-05-24 05:26 | NUR ---
SHIFT SUMMARY ASSUMED CARE OF PT AT 1900. PT A&O4, COOPERATIVE IN CARE AND ABLE TO EXPRESS SELF APPROPRIATELY. PT REMAINED NSR OVERNIGHT WITH NO ACUTE CARDIAC EVENTS REPORTED. PT DENIES CP AND SOB, AND USES SUPPLEMENTAL OXYGEN PRN. PT ONLY REPORTED MINIMAL PAIN AND REQUESTED SLEEP AID OVERNIGHT. PT'S BED IN LOWEST POSITION AND CALL LIGHT WITHIN REACH.
[2024-05-24 08:01] VITALS: BP 121/67
[2024-05-24 15:46] VITALS: BP 141/72
--- NOTE | 2024-05-24 17:27 | NUR ---
END OF SHIFT NOTE: NO ACUTE EVENTS THIS SHIFT. PT A/OX4, ABLE TO CALL APPROPRIATELY & COMMUNICATE NEEDS W/ STAFF. VSS. HR 80'S, SINUS RHYTHM ON TELE. SBP 120-140'S, DENIES CHEST PAIN/PRESSURE. SPO2 >95% ON RA-3L; PT REQUESTS O2 AT TIMES FOR COMFORT & FEELING OF SOB. AFEBRILE. MINIMAL PO INTAKE THIS SHIFT. PUREWICK IN PLACE DRAINING CLARENCE URINE TO SUCTION. NO BM'S THIS SHIFT. UP TO CHAIR VIA LIFT ASSIST FOR LUNCH. REPOSITIONED IN BED W/ PILLOWS NEEDED FOR COMFORT. DENIES PAIN. NO OTHER NEEDS AT THIS TIME. CALL LIGHT IN REACH.
[2024-05-24 20:00] VITALS: BP 134/58
--- NOTE | 2024-05-24 21:22 | NUR ---
THIS RN ASSUMED CARE OF PT AROUND 1900. PT IS ALERT AND ORIENTED X4, WATCHING FOOTBALL ON TELEVISION. PT STATES THEY ARE READY TO GO TO REHAB FACILITY. PT HEART RATE IS IN THE 90-100s, PT DENIES CHEST PAIN, BLOOD PRESSURE STABLE AT 134/58. PT SOUNDS CLEAR/DIMINISHED, PT DENIES SHORTNESS OF BREATH AND WEARS BIPAP AT NIGHT, OTHERWISE SATTING >95% ON 2L NC. PT DOES HAVE EXCORIATION AROUND TULIO AREA WITH BARRIER CREAM APPLIED. NO OTHER INTERVENTIONS AT THIS TIME. PLAN OF CARE CONTINUED.
[2024-05-25] VITALS: BP 120/63
[2024-05-25 04:00] VITALS: BP 127/68
--- NOTE | 2024-05-25 04:24 | NUR ---
PT SUMMARY PT IS LAYING IN BED WATCHING TELEVISION. NO NEW EVENTS TO REPORT OVERNIGHT. PT STILL FOLLOWING COMMANDS AND VERY APPROPRIATE. PLAN OF CARE CONTINUED.
[2024-05-25 05:22] LABS: Hematocrit 28.3 % (37.0-53.0); Hemoglobin 8.6 g/dL (13.5-17.5)
[2024-05-25 05:49] LABS: Albumin, Blood 2.2 g/dL (3.4-5.0); Anion Gap 9 mmol/L (3-11); Blood Urea Nitrogen 58 mg/dL (8-24); Bun/Creatinine Ratio 40.3 (12.0-20.0); CO2, Blood 25 mmol/L (21-32); Calcium, Blood 8.2 mg/dL (8.5-10.1); Chloride, Blood 113 mmol/L (98-108); Creatinine, Blood 1.44 mg/dL (0.60-1.20); Glomerular Filtration Rate 56 (60-); Glucose, Blood 105 mg/dL (70-99); Magnesium, Blood 1.8 mg/dL (1.6-2.4); Phosphorus, Blood 3.9 mg/dL (2.5-4.9); Potassium, Blood 3.5 mmol/L (3.5-5.5); Sodium, Blood 143 mmol/L (136-145)
[2024-05-25 07:40] VITALS: BP 110/63
--- NOTE | 2024-05-25 07:45 | NUR ---
AM NOTE: PATIENT ALERT AND ORIENTED ON NASAL CANNULA AT START OF SHIFT FOR COMFORT. STATES HE IS FEELING TIRED AND HAS SORNESS IN BILATERAL SHOULDERS. MOVING ALL EXTREMITIES, ALTHOUGH VERY WEAK. Q2 TURNING AND 2 PERSON LIFT FOR TRANSFERS. PERRLA. DENIES OVERALL PAIN THIS AM. TELE SHOWING SR WITH HR 80-90'S. DENIES CHEST PAIN/PRESSURE/PALPITATIONS. PPP. NO EDEMA NOTED. SCATTERED BRUISING THROUGHOUT. IV'S SALINE LOCKED. ON NASAL CANNULA AND BIPAP FOR COMFORT. PATIENT REQUESTING BIPAP WHEN SLEEPING. SATING ABOVE 95%. EVEN AND UNLABORED RESPIRTATIONS. DENIES COUGH. BOWEL TONES PRESENT THROUGHOUT. PATIENT REPORTS [address] MARISCAL AT BEDSIDE THIS AM AND ORDERS FOR CDIFF TEST PENDING NEXT STOOL. PURWICK IN PLACE WELL ATTENDS. URINE CLARENCE IN COLOR. PATIENT DENIES ABDOMINAL PAIN/NAUSEA. POOR APPEATITE. SCATTERED BRUISING AND SCABBING NOTED THROUGHOUT. CALL LIGHT IN REACH. DENIES NEEDS.
[2024-05-25] MEDS ORDERED: Rivaroxaban 10 MG Tab PO SCH (09:00)
[2024-05-25 11:31] LABS: SARS-Cov-2 (COVID-19) PCR, MMC NEGATIVE (NEGATIVE)
[2024-05-25] MEDS ORDERED: MELA3 PO (11:36)
[2024-05-25] MEDS ORDERED: ACET325 PO (11:36)
[2024-05-25] MEDS ORDERED: ARTIFICIAL TEAR15 M2 BOTHEYES (11:37)
[2024-05-25 11:49] VITALS: BP 128/74
--- NOTE | 2024-05-25 12:09 | NUR ---
PLAN FOR DISCHARGE TODAY TO [facility]. THIS RN SPOKE WITH ON PHONE AND UPDATED.
--- NOTE | 2024-05-25 13:58 | NUR ---
DISCHARGE NOTE: NO ACUTE CAHNGES. THIS RN CALLED REPORT TO [facility]. IV'S REMOVED WNL. DISCHARGE INSTRUCTIONS REVIEWED WITH AND PATIENT. TRANSPORT HERE TO TAKE PATIENT TO [facility] VIA WHEELCHAIR. PATIENT ON 2L AT TIME OF LEAVING UNIT. PATIENT LEFT WITH ALL PERSONAL BELONGINGS AND FACILITY DISCHARGE PACKET.
[2024-05-28] MEDS ORDERED: Darbepoetin Alfa In Albumn Sol 40 MCG/0.4 ML SC SCH (16:00)
== END 2024-05-25 14:28 | DRG 682 ==
LOC: ER 14:56 → PCU 18:35 → SURS 18:35 → ERHOLD 18:35 → ICUE 18:35 → MEDS 18:35 → SURS 18:44 → MEDS 05-04 10:38 → PCU 05-07 20:27 → ICUE 05-08 12:28 → PCU 05-16 17:58
PROVIDERS: Emergency Medicine; Family Medicine; Internal Medicine; Internal Medicine Nephrology; Nurse Practitioner Acute Care; Student in an Organized Health Care Education/Training Program; ADMIT Student in an Organized Health Care Education/Training Program
PROC: 30233J1 Transfusion of Nonautologous Serum Albumin into Peripheral Vein, Percutaneous Approach (ICD-10-PCS; 2024-05-04)
PROC: 5A09357 Assistance with Respiratory Ventilation, Less than 24 Consecutive Hours, Continuous Positive Airway Pressure (ICD-10-PCS; 2024-05-07)
PROC: 4A033R1 Measurement of Arterial Saturation, Peripheral, Percutaneous Approach (ICD-10-PCS; 2024-05-07)
PROC: 0W993ZZ Drainage of Right Pleural Cavity, Percutaneous Approach (ICD-10-PCS; 2024-05-08)
PROC: 5A1D70Z Performance of Urinary Filtration, Intermittent, Less than 6 Hours Per Day (ICD-10-PCS; principal; 2024-05-12)
PROC: 02HV33Z Insertion of Infusion Device into Superior Vena Cava, Percutaneous Approach (ICD-10-PCS; 2024-05-12)
PROC: 0W993ZZ Drainage of Right Pleural Cavity, Percutaneous Approach (ICD-10-PCS; 2024-05-12)
PROC: 009U3ZX Drainage of Spinal Canal, Percutaneous Approach, Diagnostic (ICD-10-PCS; 2024-05-13)
PROC: 0W993ZZ Drainage of Right Pleural Cavity, Percutaneous Approach (ICD-10-PCS; 2024-05-22)
DX: N17.0 Acute kidney failure with tubular necrosis (principal); G92.8 Other toxic encephalopathy; J18.9 Pneumonia, unspecified organism; G93.41 Metabolic encephalopathy; J96.01 Acute respiratory failure with hypoxia; A04.72 Enterocolitis due to Clostridium difficile, not specified as recurrent; Z94.4 Liver transplant status; D68.51 Activated protein C resistance; E87.20 Acidosis, unspecified; E87.1 Hypo-osmolality and hyponatremia; A04.0 Enteropathogenic Escherichia coli infection; J90 Pleural effusion, not elsewhere classified; I67.89 Other cerebrovascular disease; E86.0 Dehydration; E87.70 Fluid overload, unspecified; R94.7 Abnormal results of other endocrine function studies; D63.1 Anemia in chronic kidney disease; E88.09 Other disorders of plasma-protein metabolism, not elsewhere classified; M16.0 Bilateral primary osteoarthritis of hip; E87.6 Hypokalemia; N18.30 Chronic kidney disease, stage 3 unspecified; M25.422 Effusion, left elbow; B96.23 Unspecified Shiga toxin-producing Escherichia coli [E. coli] [STEC] as the cause of diseases classified elsewhere; Z79.621 Long term (current) use of calcineurin inhibitor; Z79.01 Long term (current) use of anticoagulants; Z79.69 Long term (current) use of other immunomodulators and immunosuppressants; Z99.2 Dependence on renal dialysis
CPT/HCPCS: 0202U; 32555; 36415; 36416; 36556; 36600; 51702; 62270; 70450; 71045; 71046; 71260; 73070; 74176; 76604; 76770; 80048; 80053; 80069; 80074; 80197; 80400; 81001; 82010; 82042; 82140; 82248; 82533; 82550; 82803; 82945; 82947; 83010; 83516; 83605; 83615; 83690; 83735; 83880; 83986; 84100; 84145; 84156; 84157; 84166; 84295; 84439; 84443; 84481; 84484; 84550; 85014; 85018; 85025; 85027; 85045; 85049; 85060; 85379; 85520; 85610; 85730; 86039; 86334; 86335; 86704; 87040; 87070; 87075; 87077; 87086; 87186; 87205; 87324; 87449; 87483; 87497; 87507; 87799; 88108; 88305; 88341; 88342; 89051; 92610; 93005; 93010; 93306; 94640; 94660; 94664; 94760; 94762; 96365; 97110; 97162; 97165; 97530; 99285-25; A9270; C1752; J0456; J0696; J0834; J0881; J1630; J1644; J1815; J1940; J2060; J2405; J2470; J2543; J3475; J3480; J7030; J7050; J7060; J7070; J7507; J7512; J7517; P9047; Q9967; U0002

== ENCOUNTER 2024-07-12 22:00 | Emergency (ER) | payer MEDICARE, BC ==
[~2024-07-12] VITALS: Ht 177.8 cm; Wt 90.7 kg
[~2024-07-12 22:00] MED LIST changes: +ACET325 PO; +ARTIFICIAL TEAR15 M2 BOTHEYES; +MELA3 PO
[2024-07-12] MEDS ORDERED: Ketorolac Tromethamine 15mg Vial IV ONE (22:40)
[2024-07-12 22:43] VITALS: BP 163/87
[2024-07-12 22:56] LABS: BASOPHILS ABSOLUTE AUTO 0.01 K/mm3 (0.00-0.23); BASOPHILS PERCENT AUTO 0 % (0-2); EOSINOPHILS ABSOLUTE AUTO 0.01 K/mm3 (0.00-0.68); EOSINOPHILS PERCENT AUTO 0 % (0-6); Hematocrit 34.6 % (37.0-53.0); Hemoglobin 10.7 g/dL (13.5-17.5); IMMATURE GRAN ABSOLUTE AUTO 0.03 K/mm3 (0.00-0.10); IMMATURE GRAN PERCENT AUTO 1 % (0-1); LYMPHOCYTES ABSOLUTE AUTO 0.54 K/mm3 (0.84-5.20); LYMPHOCYTES PERCENT AUTO 12 % (21-46); MONOCYTES ABSOLUTE AUTO 0.56 K/mm3 (0.16-1.47); MONOCYTES PERCENT AUTO 13 % (4-13); Mean Corpuscular HGB 29.2 pg (26.0-34.0); Mean Corpuscular HGB Conc 30.9 g/dL (31.5-36.5); Mean Corpuscular Volume 94 fL (80-100); Mean Platelet Volume 9.7 fL (9.1-12.4); NEUTROPHILS ABSOLUTE AUTO 3.34 K/mm3 (1.96-9.15); NEUTROPHILS PERCENT AUTO 74 % (41-73); Platelet Count 166 K/mm3 (150-400); RDW Coefficient Variation 14.5 % (11.7-14.2); RDW Standard Deviation 49.9 fL (35.1-46.3); Red Blood Cell Count 3.67 M/mm3 (4.30-5.90); White Blood Cell Count 4.49 K/mm3 (4.00-11.30)
[2024-07-12 23:13] LABS: CORONAVIRUS COVID-19 AG Negative (NEGATIVE); INFLUENZA A AG Negative (NEGATIVE); INFLUENZA B AG Negative (NEGATIVE)
[2024-07-12 23:13] LABS: Alanine Aminotransfer (ALT/SGP 20 U/L (12-78); Albumin, Blood 2.6 g/dL (3.4-5.0); Albumin/Globulin Ratio 0.6 (0.8-1.8); Alk Phos 241 U/L (50-136); Anion Gap 13 mmol/L (3-11); Aspartate Aminotrans (AST/SGOT 55 U/L (12-37); Bilirubin, Total 0.5 mg/dL (0.1-1.0); Blood Urea Nitrogen 10 mg/dL (8-24); Bun/Creatinine Ratio 8.3 (12.0-20.0); CO2, Blood 22 mmol/L (21-32); Calcium, Blood 8.6 mg/dL (8.5-10.1); Chloride, Blood 107 mmol/L (98-108); Creatinine, Blood 1.21 mg/dL (0.60-1.20); Globulin, Blood 4.4 g/dL (2.2-4.0); Glomerular Filtration Rate 69 (60-); Glucose, Blood 110 mg/dL (70-99); Magnesium, Blood 1.3 mg/dL (1.6-2.4); Potassium, Blood 3.6 mmol/L (3.5-5.5); Sodium, Blood 138 mmol/L (136-145)
[2024-07-12 23:45] LABS: Source, Urine Clean Catch
[2024-07-12] MEDS ORDERED: Magnesium Oxide 400 MG Tab PO ONE (23:45)
[2024-07-12] MEDS ORDERED: Doxycycline Hyclate 100 MG TAB PO ONE (23:45)
[2024-07-12 23:47] LABS: Bilirubin, Urine Neg (Neg); Blood, Urine 1+ (Neg); Glucose Qualitative, Urine Neg (Neg); Ketones, Urine Neg (Neg); Leukocyte Esterase, Urine Neg (Neg); Nitrite, Urine Neg (Neg); Protein, Urine 3+ (Neg); Urobilinogen, Urine NORM (Normal)
[2024-07-12] MEDS ORDERED: MAGNESIUM OXID500 MG PO (23:48)
[2024-07-12] MEDS ORDERED: DOXY100 PO (23:48)
[2024-07-12 23:55] LABS: Appearance, Urine Clear (Clear); Color, Urine Yellow (P-Yellow)
[2024-07-12 23:56] LABS: Amorphous Light (0-Heavy); Bacteria Rare /hpf; Red Blood Cells, Urine 0-2 /hpf (0-2); Squamous Epithelial Cells Few /hpf (Few); White Blood Cells, Urine 0-2 /hpf (0-5)
== END 2024-07-13 00:10 | disposition home or self-care (01) ==
LOC: ER 22:00
PROVIDERS: Student in an Organized Health Care Education/Training Program
DX: J18.9 Pneumonia, unspecified organism (principal); E83.42 Hypomagnesemia; Z94.4 Liver transplant status; Z79.899 Other long term (current) drug therapy; Z91.018 Allergy to other foods
CPT/HCPCS: 71045; 80053; 81001; 83735; 85025; 87428-QW; 93005; 93010; 96374; 99285-25; A9270; J1885